=== PATIENT | female | born 1985 | race Caucasian/White ===

== ENCOUNTER → 2016-03-25 | Outpatient (CLI) | payer MEDICAID ==
[~2016-03-25] MED LIST: ONETAB PO; PREN27TA3 PO; SYMB80INH INH
[2016-03-25 12:30] LABS: BASO # 0.1 K/mm3 (0.0-0.2); BASO % 1.1 % (0.0-1.0); EOS # 0.2 K/mm3 (0.0-0.50); EOS % 1.7 % (0.0-3.0); LARGE UNSTAINED CELL # 0.1 K/mm3 (0.0-0.4); LARGE UNSTAINED CELL % 1.3 % (0.0-4.0); LYMPH # 2.7 K/mm3 (1.5-6.5); LYMPH % 25.9 % (24.0-44.0); MEAN CORPUSCULAR HEMOGLOBIN 29.9 pg (27.0-33.0); MEAN CORPUSCULAR HGB CONC 33.2 g/dl (32.0-36.5); MONO # 0.4 K/mm3 (0.0-0.8); MONO % 3.9 % (0.0-5.0); NEUTROPHILS # 6.5 K/mm3 (1.8-7.7); NEUTROPHILS % 66.1 % (36.0-66.0); PLATELET COUNT, AUTOMATED 268 k/mm3 (150-450); RED CELL DISTRIBUTION WIDTH 13.1 % (11.5-14.5); WHITE BLOOD COUNT 9.8 K/mm3 (4.0-10.0)
[2016-03-25 12:46] LABS: ALBUMIN 4.5 GM/DL (3.2-5.2); ALBUMIN/GLOBULIN RATIO 1.61 (1.00-1.93); ALKALINE PHOSPHATASE 61 U/L (45-117); ALT/SGPT 19 U/L (12-78); ANION GAP 7 MEQ/L (8-16); AST/SGOT 7 U/L (15-37); BILIRUBIN,TOTAL 0.5 MG/DL (0.2-1.0); BLOOD UREA NITROGEN 11 MG/DL (7-18); CALCIUM LEVEL 9.5 MG/DL (8.5-10.1); CARBON DIOXIDE LEVEL 27 MEQ/L (21-32); CHLORIDE LEVEL 110 MEQ/L (98-107); CREATININE FOR GFR 0.78 MG/DL (0.55-1.02); GLOMERULAR FILTRATION RATE > 60.0 (>60); GLUCOSE, FASTING 93 MG/DL (70-105); SODIUM LEVEL 144 MEQ/L (136-145); TOTAL PROTEIN 7.3 GM/DL (6.4-8.2)
[2016-03-25 12:57] LABS: ERYTHROCYTE SEDIMENTATION RATE 5 mm/hr (0-20)
== END ==
LOC: M LAB 11:30
PROVIDERS: ATTEND Emergency Medicine
DX: K58.2 Mixed irritable bowel syndrome (principal); N39.0 Urinary tract infection, site not specified

== ENCOUNTER → 2016-05-06 | Outpatient (REF) | payer OTHER | LOC: M LAB REF 18:19 | PROVIDERS: ATTEND Physician Assistant Medical | DX: R30.0 Dysuria (principal) ==

== ENCOUNTER → 2016-06-30 | Outpatient (CLI) | payer OTHER ==
--- NOTE | 2016-06-30 16:29 | REP ---
RIGHT ANKLE, FOUR VIEWS: There is no evidence of an acute fracture, dislocation or intrinsic bone disease. The ankle mortise is anatomic. IMPRESSION: No fracture or dislocation. Signed by Brian Ortega MD 07/01/2016 03:19 P
== END ==
LOC: M ADAMS 14:42
PROVIDERS: ATTEND Physician Assistant
DX: M25.571 Pain in right ankle and joints of right foot (principal)

== ENCOUNTER → 2016-07-21 | Outpatient (REF) | payer OTHER | LOC: M LAB REF 10:20 | PROVIDERS: ATTEND Physician Assistant | DX: R10.30 Lower abdominal pain, unspecified (principal) ==

== ENCOUNTER 2016-10-09 17:26 | Inpatient (IN) | payer OTHER ==
[~2016-10-09] VITALS: Ht 162.6 cm; Wt 77.0 kg
[2016-10-09] MEDS ORDERED: MULT1TAB10 PO (17:43)
[2016-10-09] MEDS ORDERED: MICR1TAB11 PO (17:43)
[2016-10-09] MEDS ORDERED: AUGM875T28 PO (17:43)
[2016-10-09] MEDS ORDERED: SYMB16INH INH (17:43)
[2016-10-09] MEDS ORDERED: PANTOPRAZOLE 40MG INJ (PROTONIX) (C9113) IV ONE (19:30)
[2016-10-09] MEDS ORDERED: NS 1,000 ML IV ONE (19:30)
[2016-10-09] MEDS ORDERED: ONDANSETRON 4MG/2ML VIAL (J2405) IV ONE (19:30)
[2016-10-09] MEDS ORDERED: MORPHINE 4 MG/ML 1ML SYRINGE IV PRN (19:30)
[2016-10-09 19:49] LABS: ADD MANUAL DIFFER YES; MEAN CORPUSCULAR HEMOGLOBIN 31.1 pg (27.0-33.0); MEAN CORPUSCULAR HGB CONC 33.7 g/dl (32.0-36.5); MEAN CORPUSCULAR VOLUME 92.1 fl (80.0-96.0); PLATELET COUNT, AUTOMATED 299 k/mm3 (150-450); RED CELL DISTRIBUTION WIDTH 12.6 % (11.5-14.5); WHITE BLOOD COUNT 23.8 K/mm3 (4.0-10.0)
[2016-10-09 20:02] LABS: ALBUMIN 4.9 GM/DL (3.2-5.2); ALBUMIN/GLOBULIN RATIO 1.36 (1.00-1.93); ALKALINE PHOSPHATASE 59 U/L (45-117); ALT/SGPT 22 U/L (12-78); ANION GAP 9 MEQ/L (8-16); AST/SGOT 17 U/L (15-37); BILIRUBIN,DIRECT < 0.1 MG/DL (0.0-0.2); BILIRUBIN,TOTAL 0.5 MG/DL (0.2-1.0); BLOOD UREA NITROGEN 16 MG/DL (7-18); CALCIUM LEVEL 9.8 MG/DL (8.5-10.1); CARBON DIOXIDE LEVEL 21 MEQ/L (21-32); CHLORIDE LEVEL 106 MEQ/L (98-107); CREATININE FOR GFR 0.87 MG/DL (0.55-1.02); GLOMERULAR FILTRATION RATE > 60.0 (>60); GLUCOSE, FASTING 100 MG/DL (70-105); SODIUM LEVEL 136 MEQ/L (136-145); TOTAL PROTEIN 8.5 GM/DL (6.4-8.2)
[2016-10-09 20:18] LABS: BANDS 2 % (< 11)
[2016-10-09] MEDS ORDERED: ISOVUE-370 76% 100ML VIAL (Q9967) As Ordered ONE (21:33)
--- NOTE | 2016-10-09 22:10 | REPUSA ---
CT angiogram of the chest Clinical statement: Chest pain and shortness of breath. Technique: Multiple axial CT images were obtained from the thoracic inlet through the upper abdomen a fter a bolus administration of nonionic intravenous contrast. Coronal and sagittal reconstructions we re also obtained. No comparison is available. Findings: The pulmonary arteries are well-opacified with contrast, with no intraluminal filling defec ts to suggest embolism. The thoracic aorta is unremarkable. Thyroid gland is within normal limits. Th ere is no thoracic lymphadenopathy. There are no pericardial or pleural effusions. The lungs are marko r. Limited imaging of the upper abdomen is unremarkable. There are no suspicious osseous lesions. Impression: Unremarkable CT examination of the chest. No evidence of pulmonary embolism.
--- NOTE | 2016-10-09 22:20 | REPUSA ---
CT of the abdomen and pelvis with contrast Clinical statement: Pain. Technique: Multiple axial CT images were obtained from the base of the lungs through the floor of the pelvis utilizing 5 mm axial slices after administration of nonionic intravenous contrast. Coronal an d sagittal reconstructions were also obtained. No comparison is available. Findings: Chest: The visualized lung bases are clear. Abdomen: The liver, spleen, pancreas, kidneys, gallbladder, and adrenal glands are unremarkable. The aorta is within normal limits. There is no evidence of abdominal lymphadenopathy or ascites. Pelvis: The bowel is unremarkable, with no obstructive or inflammatory changes. The urinary bladder i s within normal limits. The other pelvic structures appear grossly intact. There is no evidence of pe lvic lymphadenopathy or ascites. Bones: There are no suspicious osseous abnormalities seen. Impression: Unremarkable CT examination of the abdomen and pelvis.
[2016-10-09 22:45] LABS: INR 0.99
[2016-10-09] MEDS ORDERED: LR 1,000 ML IV ONE (22:45)
[2016-10-09 23:26] LABS: CONTROL LINE HCG INT CTR LINE PRESENT
[2016-10-09] MEDS ORDERED: VITMTA PO (23:27)
[2016-10-09 23:36] LABS: BASO % 0.2 % (0.0-1.0); EOS # 0.2 K/mm3 (0.0-0.50); EOS % 1.4 % (0.0-3.0); LARGE UNSTAINED CELL # 0.1 K/mm3 (0.0-0.4); LARGE UNSTAINED CELL % 0.4 % (0.0-4.0); LYMPH # 0.6 K/mm3 (1.5-4.5); LYMPH % 3.7 % (24.0-44.0); MEAN CORPUSCULAR HEMOGLOBIN 30.7 pg (27.0-33.0); MEAN CORPUSCULAR HGB CONC 33.3 g/dl (32.0-36.5); MEAN CORPUSCULAR VOLUME 92.3 fl (80.0-96.0); MONO # 0.3 K/mm3 (0.0-0.8); MONO % 1.6 % (0.0-5.0); NEUTROPHILS # 14.7 K/mm3 (1.8-7.7); NEUTROPHILS % 92.6 % (36.0-66.0); PLATELET COUNT, AUTOMATED 232 k/mm3 (150-450); RED CELL DISTRIBUTION WIDTH 12.6 % (11.5-14.5); WHITE BLOOD COUNT 15.8 K/mm3 (4.0-10.0)
[2016-10-10] VITALS (11 sets, daily range): BP systolic 97–120; BP diastolic 49–79
[2016-10-10] MEDS ORDERED: MAALOX 30 ML SUSP *UDC PO PRN
[2016-10-10] MEDS ORDERED: ACETAMINOPHEN TAB 650MG DOSE (2X325MG) PO PRN
[2016-10-10] MEDS ORDERED: ONDANSETRON 4MG/2ML VIAL (J2405) IV PRN
--- NOTE | 2016-10-10 00:55 | HPE ---
DATE OF ADMISSION: 10/09/2016 PRIMARY CARE PROVIDER: Syl Corea. CHIEF COMPLAINT: Nausea, vomiting. HISTORY OF PRESENT ILLNESS: This is a 31-year-old female patient with underlying medical history of ectopic , asthma, presented to the hospital on 10/09/2016, since 3 p.m. with acute onset nausea, vomiting that was persistent, more than 10 times, initially was food, eventually was dry heaving and to the extent that she was having blood in her vomitus and also reported three episodes of watery red bowel movement. Subsequently, presented to the hospital. Denies any sick contact, recent travel. By the time the patient was taken to the emergency room, patient's symptoms have resolved. Abdominal pain around the epigastric region at its worst was about 10/10, sharp, non-radiating, with no exacerbating or relieving factor. Has resolved by the patient was seen in the emergency room. Patient denies any chest pain, pressure or discomfort. Currently denies any nausea, vomiting. Denies any urinary complaint, dysuria, hematuria. No previous episodes. No history of gastrointestinal (GI) bleed. Orthostatics done at the emergency room were negative. ALLERGIES: No known drug allergies. PAST MEDICAL HISTORY: 1. Asthma. 2. Ectopic . PAST SURGICAL HISTORY: Ectopic and (C) section treated with salpingostomy 2014. SOCIAL HISTORY: Smokes about 3-4 cigarettes per day for the past 10 years. Denies drinking alcoholic beverages or illicit drug use. Denies any liver problems. FAMILY HISTORY: Patient's maternal aunts with breast cancer. REVIEW OF SYSTEMS: Reported nausea, vomiting, epigastric abdominal pain and diarrhea with blood in the stool and also hematemesis. All other review of systems is negative. Denies any fevers or chills. HOME MEDICATIONS: - Augmentin 875 mg by mouth twice a day - Symbicort 160/4.5 twice a day - Microgestin 24 one tablet by mouth daily - multivitamin one tablet by mouth daily PHYSICAL EXAMINATION: VITAL SIGNS: Temperature 96.1, pulse 76, respirations 18, blood pressure 115/65, pulse oximetry 100% on room air. GENERAL: Patient alert and oriented times three in no acute distress. HEENT: Normocephalic, atraumatic. PULMONARY: Bilaterally clear to auscultation. CARDIAC: Regular rate and rhythm. Normal S1, S2. ABDOMEN: Soft, nontender. Hyperactive bowel sounds. EXTREMITIES: No clubbing, cyanosis or edema. NEUROLOGICAL: No focal deficits. LABORATORY: WBC 23.8, hemoglobin and hematocrit 16.4/48.7, platelets 299. Chemistry: Sodium 136, potassium 4, chloride 106, bicarbonate 21, BUN 16, creatinine 0.87. Lactic acid 1.6. C-reactive protein negative. Lipase negative. CT of the chest unremarkable. CT of the abdomen unremarkable as well. ASSESSMENT AND PLAN: This is a 31-year-old female patient with underlying medical history of asthma and ectopic admitted with abdominal pain, nausea, vomiting, hematemesis, and diarrhea. 1. Hematemesis, nausea, vomiting, abdominal pain. Likely secondary to gastroenteritis with possible Monica-Rodriguez tear. I have consulted gastroenterology, Dr. Johnson. Orthostatics have been negative. Followup blood pressures. Intravenous (IV) fluids for hydration. Consented for transfusion. Followup hemoglobin and hematocrit. Transfuse as needed. Protonix twice a day, as well as Carafate. Maalox as needed. Pain medication as ordered. Followup fecal occult. 2. History of ectopic . HCG has been negative. CT scan of the abdomen appreciated. 3. Leukocytosis. Likely reactive to the acute phase of nausea, vomiting. Possible viral gastroenteritis. C-reactive protein has been negative. CT scan has been negative. Will withhold antibiotics. Followup cultures. IV fluids for hydration. 4. Deep venous thrombosis (DVT) prophylaxis. Sequential compression device and early ambulation. DISPOSITION: Pending gastroenterology consultation and clinical improvement. Monitor hemoglobin and hematocrit.
[2016-10-10] MEDS: LR 1,000 ML IV SCH ×4 (02:26→19:08)
[2016-10-10] MEDS: SUCRALFATE 1 GM TAB PO SCH ×6 (05:14→21:43)
[2016-10-10 07:03] LABS: MEAN CORPUSCULAR HEMOGLOBIN 31.7 pg (27.0-33.0); MEAN CORPUSCULAR HGB CONC 34.5 g/dl (32.0-36.5); MEAN CORPUSCULAR VOLUME 91.8 fl (80.0-96.0); RED CELL DISTRIBUTION WIDTH 12.7 % (11.5-14.5); WHITE BLOOD COUNT 10.1 K/mm3 (4.0-10.0)
[2016-10-10 07:23] LABS: ANION GAP 7 MEQ/L (8-16); BLOOD UREA NITROGEN 12 MG/DL (7-18); CARBON DIOXIDE LEVEL 25 MEQ/L (21-32); CHLORIDE LEVEL 109 MEQ/L (98-107); CREATININE FOR GFR 0.65 MG/DL (0.55-1.02); GLOMERULAR FILTRATION RATE > 60.0 (>60); GLUCOSE, FASTING 90 MG/DL (70-105); SODIUM LEVEL 141 MEQ/L (136-145)
[2016-10-10] MEDS: SYMBICORT 160/4.5MCG INHALER 6GM INH SCH ×2 (07:39→20:13)
[2016-10-10] MEDS: PANTOPRAZOLE 40MG INJ (PROTONIX) (C9113) IV SCH ×2 (08:30→21:43)
--- NOTE | 2016-10-10 14:33 | CR ---
DATE OF CONSULTATION: 10/10/2016 STATUS OF PATIENT: Inpatient. REQUESTING PHYSICIAN: Hospitalist service. REASON FOR CONSULTATION: Hematemesis. HISTORY OF PRESENT ILLNESS: This is a 31-year-old female patient without any significant past medical history who presents to the emergency room with acute nausea and vomiting that has been persistent for the entire day. She has several episodes of dry heaving, but subsequently produced bright red blood in her vomitus. She at some point throughout the evening also developed some dark stools, as well as reddish stools. She had significant abdominal pain, which was described as sharp, located in the epigastric area, without any relief. The patient presents to the emergency room with above. ALLERGIES: No known drug allergies. PAST MEDICAL HISTORY: Is asthma and ectopic . PAST SURGICAL HISTORY: Is ectopic . SOCIAL HISTORY: Is positive for 3-5 cigarettes per day. Negative for alcohol. FAMILY HISTORY: Is negative for colorectal carcinoma, inflammatory bowel disease, or chronic liver disease. It is positive for breast cancer. REVIEW OF SYSTEMS: General: Negative for night sweats, fevers, or chills, or weight loss. Pulmonary: Negative for hemoptysis, pleuritic-type chest pain. Cardiac: Negative for orthopnea, paroxysmal nocturnal dyspnea (PND). Gastrointestinal (GI): Is as per history of present illness (HPI). Genitourinary (): Negative for hematuria or dysuria. Musculoskeletal: Negative for myalgias or arthralgias. Neurological: Negative for focal numbness or weakness. MEDICATIONS AT HOME: Are: - Augmentin - Symbicort - microgestin - a multivitamin PHYSICAL EXAMINATION: Temperature 97.4, pulse is 76 regular, respirations 16, blood pressure 115/65, pulse oximetry 100% on room air. General: She is awake and alert, oriented times three, in no acute distress. She is nontoxic in appearance. She appears comfortable in bed. Head, eyes, ears, nose, and throat: Are grossly without abnormality. There is no oral thrush. Neck is supple. No lymphadenopathy or thyromegaly. Chest is clear bilaterally. No rhonchi or crackles. Heart is regular rate and rhythm, S1, S2. No murmurs are appreciated. Abdomen is soft, mildly tender in the epigastric area on deep palpation only. There is no rebound ascites. No masses. Extremities: Negative for edema. Pulses are present and intact. Neurological: Negative for focal numbness or weakness. She is awake, alert, and oriented times three. She ambulates in the room without any difficulty. LABORATORY WORK: WBC 10.1, hemoglobin 11.8, hematocrit 34.3, BUN 12, creatinine is 0.65. Presentation laboratory work includes a hemoglobin of 16.4 with a WBC count of 23.8, platelet count of 299, BUN 16, and creatinine 0.8. IMAGING: CT abdomen and pelvis is unremarkable. IMPRESSION: 1. Hematemesis. 2. Melena. DISCUSSION: Probable mechanism for her symptoms is likely a Monica-Rodriguez tear that produced some significant bleeding and even produced some melena. Alternatives such as two separate lesions may also be entertained. However, are much less likely. The plan: Upper endoscopy. Clear liquids. Further recommendations to follow.
[2016-10-10] MEDS ORDERED: LIDOCAINE 2% INJ 100 MG/5 ML SDV (FOR ANES.) As Ordered ONE (14:47)
[2016-10-10] MEDS ORDERED: PROPOFOL 200 MG/20 ML VIAL As Ordered ONE (14:47)
--- NOTE | 2016-10-10 14:57 | ROOR ---
Patient Name: Sherley Dunn Procedure Date: 10/10/2016 2:15 PM Date of : 1985 Age: 31 Gender: Female Note Status: Finalized Procedure: Upper GI endoscopy Indications: Hematemesis, Hematochezia, Melena Providers: Brian JOHNSON MD Referring MD: Syl Corea MD Requesting Provider: Medicines: Monitored Anesthesia Care Complications: No immediate complications. Procedure: Pre-Anesthesia Assessment: - The heart rate, respiratory rate, oxygen saturations, blood pressure, adequacy of pulmonary ventilation, and response to care were monitored throughout the procedure. The Endoscope was introduced through the mouth, and advanced to the second part of duodenum. The upper GI endoscopy was accomplished without difficulty. The patient tolerated the procedure well. Findings: The esophagus was normal. The stomach was normal. The examined duodenum was normal. Impression: - Normal esophagus. - Normal stomach. - Normal examined duodenum. - No specimens collected. Recommendation: - I suspect she may have leaked from a Monica Alonzo tear, however on todays exam, I do not see any hint of irritation or tear. It is still probable that a small monica alonzo may have sealed itself, but in view of rectal bleeding old blood and fresh blood, I think it would be prudent to eval lower GI tract via colonoscopy. - Perform a colonoscopy tomorrow. Brian Johnson MD Brian JOHNSON MD 10/10/2016 2:57:29 PM This report has been signed electronically. Number of Addenda: 0 Note Initiated On: 10/10/2016 2:15 PM Estimated Blood Loss: Estimated blood loss: none.
[2016-10-10] MEDS: MULTIVITAMINS/MINERALS THERAP 1 TAB PO SCH (16:05)
[2016-10-10] MEDS ORDERED: GOLYTELY SOLN 4000 ML BTL PO ONE (17:00)
--- NOTE | 2016-10-10 21:16 | IPN ---
DATE: 10/10/2016 SUBJECTIVE: Patient is seen and examined in the afternoon after her upper endoscopy. Per patient, patient started vomiting blood, had a significant amount of blood after vigorous vomiting. Later, patient noticed to have multiple bloody bowel movements. Per patient, the estimated blood loss is about several cups. Never had a similar episode in the past. When patient returned from the EGD, patient still noted to have significant bloody stools. Patient tolerated upper endoscopy well without any significant adverse effect. OBJECTIVE: VITAL SIGNS: Temperature is 98.2, pulse is 92, respirations 18, blood pressure is 128/59, pulse oximetry is 97% in room air. GENERAL: No sign of acute distress, alert and oriented times three. HEENT: Normocephalic, atraumatic. Extraocular motors grossly intact. CARDIOVASCULAR: Positive S1, S2, regular rate. LUNGS: Clear to auscultation bilaterally. ABDOMEN: Soft, nontender, nondistended. Bowel sounds present. EXTREMITIES: No edema. No sign of cyanosis. LABORATORY DATA: WBC is 10.1, hemoglobin 11.8, hematocrit 34.3, platelet count is 223. Sodium is 141, potassium 4, chloride 109, carbon dioxide 25, BUN 12, creatinine 0.65, GFR greater than 60, fasting glucose is 90, calcium 8, magnesium 2. ASSESSMENT AND PLAN: 1. Acute gastrointestinal (GI) bleed. Patient has history of hemoptysis and bright red blood per rectum. Aed Trainer, Dr. Johnosn, has been consulted. Patient just had an upper endoscopy performed today. Patient will receive GoLYTELY and patient will have a colonoscopy tomorrow. Patient is continued on IV fluid hydration. Initially, patient had a drop in hemoglobin and hematocrit but may be a combination of fluid hemodilution and acute blood loss. For the last 12-24 hours, patient's hemoglobin and hematocrit is stable. Patient's hemoglobin and hematocrit has been measured every 6 hours. 2. Leukocytosis. It may be due to a combination of dehydration and physical stress from dehydration. In order to rule out infectious cause, we will followup with gastrointestinal (GI) panel. Blood culture is pending. Urine culture is pending. 3. History of asthma. No exacerbation. 4. History of ectopic . 5. Deep venous thrombosis (DVT) prophylaxis. Due to acute gastrointestinal (GI) bleeding, patient is not on anticoagulation. Patient is on compression device.
[2016-10-11] VITALS (8 sets, daily range): BP systolic 120–137; BP diastolic 63–89
[2016-10-11] MEDS: LR 1,000 ML IV SCH ×2 (02:40→08:10)
[2016-10-11 05:33] LABS: MEAN CORPUSCULAR HEMOGLOBIN 31.6 pg (27.0-33.0); MEAN CORPUSCULAR HGB CONC 34.4 g/dl (32.0-36.5); RED CELL DISTRIBUTION WIDTH 12.7 % (11.5-14.5); WHITE BLOOD COUNT 5.8 K/mm3 (4.0-10.0)
[2016-10-11] MEDS ORDERED: GOLYTELY SOLN 4000 ML BTL PO ONE (06:00)
[2016-10-11 06:44] LABS: ANION GAP 5 MEQ/L (8-16); BLOOD UREA NITROGEN 6 MG/DL (7-18); CALCIUM LEVEL 8.1 MG/DL (8.5-10.1); CARBON DIOXIDE LEVEL 25 MEQ/L (21-32); CHLORIDE LEVEL 109 MEQ/L (98-107); CREATININE FOR GFR 0.58 MG/DL (0.55-1.02); GLOMERULAR FILTRATION RATE > 60.0 (>60); GLUCOSE, FASTING 92 MG/DL (70-105); POTASSIUM SERUM 3.4 MEQ/L (3.5-5.1); SODIUM LEVEL 139 MEQ/L (136-145)
[2016-10-11] MEDS: SUCRALFATE 1 GM TAB PO SCH ×2 (06:57→13:49)
[2016-10-11] MEDS ORDERED: POTASSIUM CHLORIDE 10 MEQ SR TABLET PO ONE (07:30)
[2016-10-11] MEDS: SYMBICORT 160/4.5MCG INHALER 6GM INH SCH (08:10)
[2016-10-11] MEDS: PANTOPRAZOLE 40MG INJ (PROTONIX) (C9113) IV SCH (08:10)
[2016-10-11] MEDS: MULTIVITAMINS/MINERALS THERAP 1 TAB PO SCH (08:10)
[2016-10-11] MEDS ORDERED: SUCR1TA PO (13:25)
[2016-10-11] MEDS ORDERED: PROT1TAB2 PO (13:25)
--- NOTE | 2016-10-11 15:13 | IPN ---
DATE: 10/11/2016 The patient is seen and examined at the bedside. Chart has been reviewed. She reports some bloody bowel movements last evening but denies any dizziness, lightheadedness, or weakness. No shortness of breath, chest pain, pressure or tightness. This was described as maroon colored stools, small amount mixed with stool. EGD yesterday showed a possible Monica-Rodriguez tear but no visible oozing. No other issues per nursing. She currently has no abdominal pain. Described some cramping yesterday but currently has no nausea or vomiting. She has been preparing for the colonoscopy yesterday evening and into this morning and has been having loose bowel movements with blood tinged stool. Otherwise, no other issues per nursing. PHYSICAL EXAMINATION: VITAL SIGNS: Temperature 98.5, pulse 88, respiratory rate 18, blood pressure 120/63, 99% on room air. GENERAL: The patient is awake, alert, oriented times three. No pallor. No icterus. No jaundice. Pupils are round and reactive to light and accommodation. Extraocular muscles are intact. No cervical lymphadenopathy. No jugular venous distention (JVD). LUNGS: Clear to auscultation with no wheezing, rales or rhonchi. HEART: S1, S2. Sinus rhythm. ABDOMEN: Soft, nontender, nondistended. Positive bowel sounds. EXTREMITIES: No pitting edema. LABORATORY DATA: White count 5.8, hemoglobin 10, hematocrit 31, platelet count of 197. Sodium 139, potassium 3.4, chloride 109, bicarbonate 25, BUN 6, creatinine 0.58, glucose of 92. EGD on 10/10/2016 showed possible leak from a Monica-Rodriguez tear; however, no hint of irritation or tear, probably small, which may have healed itself. Evaluate lower GI tract by colonoscopy. ASSESSMENT AND PLAN: This is a 31-year-old female with a history of asthma, ectopic , active cigarette use, denies alcoholic beverages, presents with nausea, vomiting, hematemesis and maroon colored stools. CURRENT ISSUES: 1. Acute GI bleed, history of hemoptysis, bright red blood per rectum. EGD was essentially negative with the possibility of a sealed off Monica-Rodriguez tear. Hemoglobin and hematocrit still remain stable and the patient is still asymptomatic. Denies any dizziness, lightheadedness, weakness, chest pain, pressure, tightness or shortness of breath. Continue with hemoglobin and hematocrit and nothing by mouth status. The patient will undergo colonoscopy today. Currently undergoing GoLYTELY on IV fluids. Hemoglobin and hematocrit may have some fluid hemodilution and still with acute blood loss. 2. Leukocytosis. Combination of dehydration and stress from dehydration. Rule out infectious process. GI panel was sent. Hemoccult was positive. GI panel was ordered, but no sample has been sent. 3. Deep vein thrombosis (DVT) prophylaxis with knee high sequentials. DISPOSITION: May discharge in the morning if hemoglobin and hematocrit are stable and no active GI bleeding and negative colonoscopy and tolerating a diet.
[2016-10-11] MEDS ORDERED: LIDOCAINE 2% INJ 100 MG/5 ML SDV (FOR ANES.) As Ordered ONE (16:01)
[2016-10-11] MEDS ORDERED: PROPOFOL 200 MG/20 ML VIAL As Ordered ONE (16:01)
--- NOTE | 2016-10-11 16:18 | ROOR ---
Patient Name: Sherley Dunn Procedure Date: 10/11/2016 3:54 PM Date of : 1985 Age: 31 Room: [facility] Gender: Female Note Status: Finalized Procedure: Colonoscopy Indications: Hematochezia Providers: Brian FIGUEROA MD Referring MD: Syl Corea MD Requesting Provider: Medicines: Monitored Anesthesia Care Complications: No immediate complications. Procedure: Pre-Anesthesia Assessment: - The heart rate, respiratory rate, oxygen saturations, blood pressure, adequacy of pulmonary ventilation, and response to care were monitored throughout the procedure. The Colonoscope was introduced through the anus and advanced to 5 cm into the ileum. The colonoscopy was performed without difficulty. The patient tolerated the procedure well. The quality of the bowel preparation was good. Findings: The perianal exam findings include thrombosed external hemorrhoids. Internal hemorrhoids were found during retroflexion. The hemorrhoids were medium-sized. The terminal ileum appeared normal. The entire examined colon appeared normal on direct and retroflexion views. Impression: - Small external hemorrhoids found on perianal exam. - Small Internal hemorrhoids. - The examined portion of the ileum was normal. - The colon and terminal ileum are normal on direct and retroflexion views. - No specimens collected. Recommendation: - The patient will be observed post-procedure, until all discharge criteria are met. - Resume regular diet. - Return to primary care physician. - Formal follow up appointment with me not necessary. Can follow up PRN - Use fiber, for example Citrucel, Fibercon, Konsyl or Metamucil. Brian Figueroa MD Brian FIGUEROA MD 10/11/2016 4:18:18 PM This report has been signed electronically. Number of Addenda: 0 Note Initiated On: 10/11/2016 3:54 PM Estimated Blood Loss: Estimated blood loss: none.
--- NOTE | 2016-10-25 22:33 | DSES ---
DATE OF ADMISSION: 10/09/2016 DATE OF DISCHARGE: 10/11/2016 CONSULTANTS DURING THIS ADMISSION: Brian Johnson MD. PRIMARY CARE PHYSICIAN: Syl Corea PRIMARY DISCHARGE DIAGNOSES: 1. Thrombosed external hemorrhoids. 2. Internal hemorrhoids 3. Acute blood loss anemia secondary to gastrointestinal (GI) bleed with bright red blood per rectum. 4. History of asthma. 5. History of ectopic . 6. Possible leak from Monica-Rodriguez tear. 7. Hypokalemia, low potassium of 3.4. DISCHARGE MEDICATIONS: - Symbicort 160-4.5 mcg two puffs twice a day - Microgestin one tab daily - multivitamins one tablet daily PROCEDURES DURING THIS ADMISSION: Colonoscopy due to hematochezia. Findings of thrombosed external hemorrhoids, internal hemorrhoids, medium sized. Esophagogastroduodenoscopy (EGD) on 10/10 showed possible leak from Monica- Rodriguez tear. No hint of irritation or tear, probably small leak which may have healed itself. HOSPITAL COURSE: This is a 31-year-old female with history of asthma, ectopic , active cigarette use, denies alcohol beverages, presents with nausea, vomiting, hematemesis and maroon colored stools with hematochezia. Esophagogastroduodenoscopy (EGD) performed by Brian Johnson showed a sealed off Monica-Rodriguez tear. Hemoglobin and hematocrit remains stable. Denies any dizziness, lightheadedness, weakness, chest pain, pressure, tightness or shortness of breath. She was kept nothing by mouth with IV fluids and underwent esophagogastroduodenoscopy (EGD) and colonoscopy. Hemoglobin remains stable, 11.8 to 11.5. She did not require any blood transfusion, but she was B type positive. CT abdomen and pelvis: No evidence of abdominal or pelvic pathology. Lungs were clear. Chest CT, due to complaints of hematemesis and epigastric pain, showed unremarkable CT of the chest. No evidence pulmonary embolism. The patient underwent esophagogastroduodenoscopy (EGD) and colonoscopy on 10/10. Esophagogastroduodenoscopy (EGD) showed possible leak from Monica-Rodriguez tear, but no hint of irritation or tear, probably small Monica-Rodriguez tear which may have healed itself. Normal esophagus, stomach and duodenum. Colonoscopy showed thrombosed external hemorrhoids and internal hemorrhoids. The patient was advanced in diet with normal hemoglobin and hematocrit was discharged home in stable in condition. LABORATORY ON DISCHARGE: White count 5.8, hemoglobin 10.8, hematocrit 31, platelet count 197. Sodium 139, potassium 3.4, chloride 109, bicarbonate 25, BUN 6, creatine 0.58, glucose is 92. Two sets of blood cultures on 10/09/ and 10/10 were negative. Urine culture 10/10 negative. 10/10, hemoccult stool ws positive. Imaging studies 10/09: No pulmonary emboli (PE). No acute lung pathology. 10/09 CT abdomen and pelvis was also negative. Unremarkable CT abdomen and pelvis. Time spent on discharge 30 minutes. [facility]
== END 2016-10-11 19:15 | disposition home or self-care (01) | DRG 253 ==
LOC: M ED 17:26 → M ED INP 23:53 → M PED 10-10 01:43
PROVIDERS: ADMIT Hospitalist; ATTEND General Practice
PROC: 0DJ08ZZ Inspection of Upper Intestinal Tract, Via Natural or Artificial Opening Endoscopic (ICD-10-PCS; principal; 2016-10-10 09:15)
PROC: 0DJD8ZZ Inspection of Lower Intestinal Tract, Via Natural or Artificial Opening Endoscopic (ICD-10-PCS; 2016-10-11)
DX: K92.2 Gastrointestinal hemorrhage, unspecified (principal); E86.0 Dehydration; K64.5 Perianal venous thrombosis; J45.909 Unspecified asthma, uncomplicated; D72.829 Elevated white blood cell count, unspecified; F17.210 Nicotine dependence, cigarettes, uncomplicated; K64.8 Other hemorrhoids; D62 Acute posthemorrhagic anemia; K22.6 Gastro-esophageal laceration-hemorrhage syndrome; Z79.899 Other long term (current) drug therapy

== ENCOUNTER 2016-10-14 22:31 | Emergency (ER) | payer OTHER ==
[~2016-10-14] VITALS: Ht 162.6 cm; Wt 72.7 kg
[~2016-10-14 22:31] MED LIST changes: +AUGM875T28 PO; +MICR1TAB11 PO; +MULT1TAB10 PO; +PROT1TAB2 PO; +SUCR1TA PO; +SYMB16INH INH; +VITMTA PO
[2016-10-14 22:32] VITALS: BP 136/73
== END 2016-10-14 23:51 | disposition left against medical advice (07) ==
LOC: M ED 22:31
DX: R53.1 Weakness (principal); Z53.29 Procedure and treatment not carried out because of patient's decision for other reasons

== ENCOUNTER → 2016-10-20 | Outpatient (CLI) | payer OTHER ==
[2016-10-20 12:42] LABS: BASO % 0.5 % (0.0-1.0); EOS # 0.2 K/mm3 (0.0-0.50); EOS % 2.1 % (0.0-3.0); LARGE UNSTAINED CELL # 0.1 K/mm3 (0.0-0.4); LARGE UNSTAINED CELL % 1.1 % (0.0-4.0); LYMPH # 2.5 K/mm3 (1.5-4.5); LYMPH % 29.5 % (24.0-44.0); MEAN CORPUSCULAR VOLUME 91.2 fl (80.0-96.0); MONO # 0.3 K/mm3 (0.0-0.8); MONO % 3.2 % (0.0-5.0); NEUTROPHILS # 5.2 K/mm3 (1.8-7.7); NEUTROPHILS % 63.7 % (36.0-66.0); PLATELET COUNT, AUTOMATED 284 k/mm3 (150-450); RED CELL DISTRIBUTION WIDTH 12.7 % (11.5-14.5); WHITE BLOOD COUNT 8.1 K/mm3 (4.0-10.0)
[2016-10-20 12:53] LABS: ANION GAP 10 MEQ/L (8-16); BLOOD UREA NITROGEN 11 MG/DL (7-18); CARBON DIOXIDE LEVEL 24 MEQ/L (21-32); CHLORIDE LEVEL 108 MEQ/L (98-107); CREATININE FOR GFR 0.69 MG/DL (0.55-1.02); GLOMERULAR FILTRATION RATE > 60.0 (>60); GLUCOSE, FASTING 96 MG/DL (70-105); MAGNESIUM LEVEL 2.4 MG/DL (1.8-2.4); POTASSIUM SERUM 4.1 MEQ/L (3.5-5.1); SODIUM LEVEL 142 MEQ/L (136-145)
== END ==
LOC: M LAB 11:58
PROVIDERS: ATTEND Physician Assistant Medical
DX: R53.1 Weakness (principal); K62.5 Hemorrhage of anus and rectum; A08.4 Viral intestinal infection, unspecified

== ENCOUNTER → 2016-11-08 | Outpatient (REF) | payer OTHER ==
[2016-11-08 20:21] LABS: EOS % 1.6 % (0.0-3.0); LYMPH % 22.3 % (24.0-44.0); MEAN CORPUSCULAR HGB CONC 33.2 g/dl (32.0-36.5); MEAN CORPUSCULAR VOLUME 93.2 fl (80.0-96.0); MONO % 3.8 % (0.0-5.0); NEUTROPHILS % 70.8 % (36.0-66.0); PLATELET COUNT, AUTOMATED 275 k/mm3 (150-450); RED CELL DISTRIBUTION WIDTH 12.5 % (11.5-14.5); WHITE BLOOD COUNT 10.6 K/mm3 (4.0-10.0)
[2016-11-08 20:22] LABS: BASO # 0.1 K/mm3 (0.0-0.2); BASO % 0.6 % (0.0-1.0); EOS # 0.2 K/mm3 (0.0-0.50); LARGE UNSTAINED CELL # 0.1 K/mm3 (0.0-0.4); LARGE UNSTAINED CELL % 0.9 % (0.0-4.0); LYMPH # 2.5 K/mm3 (1.5-4.5); MONO # 0.4 K/mm3 (0.0-0.8); NEUTROPHILS # 7.5 K/mm3 (1.8-7.7)
[2016-11-08 20:51] LABS: ALBUMIN 4.1 GM/DL (3.2-5.2); ALBUMIN/GLOBULIN RATIO 1.37 (1.00-1.93); ALKALINE PHOSPHATASE 52 U/L (45-117); ALT/SGPT 17 U/L (12-78); ANION GAP 12 MEQ/L (8-16); AST/SGOT 10 U/L (15-37); BILIRUBIN,TOTAL 0.4 MG/DL (0.2-1.0); BLOOD UREA NITROGEN 9 MG/DL (7-18); CALCIUM LEVEL 8.7 MG/DL (8.5-10.1); CARBON DIOXIDE LEVEL 22 MEQ/L (21-32); CHLORIDE LEVEL 109 MEQ/L (98-107); CREATININE FOR GFR 0.67 MG/DL (0.55-1.02); GLOMERULAR FILTRATION RATE > 60.0 (>60); GLUCOSE, FASTING 70 MG/DL (70-105); POTASSIUM SERUM 3.9 MEQ/L (3.5-5.1); SODIUM LEVEL 143 MEQ/L (136-145); TOTAL PROTEIN 7.1 GM/DL (6.4-8.2)
== END ==
LOC: M LABWUC 19:31
PROVIDERS: ATTEND Family Medicine
DX: M79.1 Myalgia (principal); K92.0 Hematemesis

== ENCOUNTER → 2016-11-28 | Outpatient (REF) | payer OTHER | LOC: M LAB REF 17:00 | PROVIDERS: ATTEND Specialist | DX: Z12.4 Encounter for screening for malignant neoplasm of cervix (principal) ==

== ENCOUNTER → 2016-12-29 | Outpatient (CLI) | payer OTHER ==
[2016-12-29 14:30] LABS: FOLATE > 24.0 NG/ML; VITAMIN B12 LEVEL 439 PG/ML
--- NOTE | 2016-12-29 17:55 | REP ---
Clinical: Cervicalgia. Technique: AP, lateral, flexion/extension, bilateral oblique, and open-mouth views of the cervical spine. Findings: Alignment is maintained. Moderate degenerative disc osteophyte complex at the C5-6 level includes anterior spurring, endplate sclerosis and disc space narrowing. No acute fracture / compression injury or subluxation. Oblique views demonstrate patent neural foramen. Open mouth view demonstrates normal C1-C2 articulation and odontoid process. Impression: Moderate focal degenerative disc osteophyte complex at C5-6. Signed by Stephan Do MD 12/29/2016 05:46 P
[2016-12-31 00:07] LABS: Lyme Disease IgG/IgM Antibodie <0.91 ISR (0.00-0.90); Lyme Disease IgM Ab Quantitati <0.80 index (0.00-0.79)
== END ==
LOC: M ADAMS 09:12
PROVIDERS: ATTEND Physician Assistant Medical
DX: M54.2 Cervicalgia (principal)

== ENCOUNTER → 2017-04-16 | Outpatient (REF) | payer OTHER | LOC: M LAB REF 04-17 12:19 | DX: N30.01 Acute cystitis with hematuria (principal) | CPT/HCPCS: 87086 ==

== ENCOUNTER → 2017-04-18 | Outpatient (REF) | payer OTHER ==
[2017-04-18 12:47] LABS: BASO # 0.1 10^3/uL (0.0-0.2); BASO % 0.9 % (0.0-1.0); EOS # 0.2 10^3/uL (0.0-0.50); EOS % 2.9 % (0.0-3.0); HEMATOCRIT 40.2 % (36.0-47.0); HEMOGLOBIN 13.1 g/dl (12.0-16.0); IMMATURE GRANULOCYTE % 0.2 % (0-0); LYMPH # 2.8 10^3/uL (1.5-4.5); LYMPH % 33.6 % (24.0-44.0); MEAN CORPUSCULAR HGB CONC 32.6 g/dl (32.0-36.5); MEAN CORPUSCULAR VOLUME 92.2 fl (80.0-96.0); MONO # 0.4 10^3/uL (0.0-0.8); MONO % 5.1 % (0.0-5.0); NEUTROPHILS # 4.7 10^3/uL (1.8-7.7); NEUTROPHILS % 57.3 % (36.0-66.0); PLATELET COUNT, AUTOMATED 295 10^3/uL (150-450); RED BLOOD COUNT 4.36 10^6/uL (4.00-5.40); RED CELL DISTRIBUTION WIDTH 12.5 % (11.5-14.5); WHITE BLOOD COUNT 8.2 10^3/uL (4.0-10.0)
== END ==
LOC: M LABDRWAD 12:28
DX: R59.9 Enlarged lymph nodes, unspecified (principal)

== ENCOUNTER → 2017-04-22 | Outpatient (REF) | payer OTHER ==
[2017-04-22 21:58] LABS: APPEARANCE, URINE CLEAR (CLEAR); BACTERIA, URINE AUTO NEGATIVE (NEGATIVE); BILIRUBIN, URINE AUTO NEGATIVE (NEGATIVE); BLOOD, URINE BLOOD NEGATIVE (NEGATIVE); COLOR, URINE COLORLESS (YELLOW); GLUCOSE, URINE (UA) AUTO NEGATIVE (NEGATIVE); KETONE, URINE AUTO NEGATIVE (NEGATIVE); LEUKOCYTE ESTERASE, URINE AUTO NEGATIVE (NEGATIVE); NITRITE, URINE AUTO NEGATIVE (NEGATIVE); PROTEIN, URINE AUTO NEGATIVE (NEGATIVE); RBC, URINE AUTO 0 /HPF (0-3); SPECIFIC GRAVITY URINE AUTO 1.002 (1.002-1.035); SQUAMOUS EPITHELIAL CELL UR AU 3 /HPF (0-6); UROBILINOGEN, URINE AUTO 0.2 mg/dL (0.0-2.0); WBC, URINE AUTO 0 /HPF (0-3)
[2017-04-22 22:06] LABS: INFLUENZA A AMPLIFICATION POSITIVE (NEGATIVE); INFLUENZA B AMPLIFICATION NEGATIVE (NEGATIVE); RSV AMPLIFICATION NEGATIVE (NEGATIVE)
== END ==
LOC: M LAB REF 14:38
DX: N39.0 Urinary tract infection, site not specified (principal); J09.X2 Influenza due to identified novel influenza A virus with other respiratory manifestations

== ENCOUNTER → 2017-04-26 | Outpatient (CLI) | payer OTHER | LOC: M ADAMS 13:54 | DX: J09.X2 Influenza due to identified novel influenza A virus with other respiratory manifestations (principal) | CPT/HCPCS: 71046 ==

== ENCOUNTER → 2017-12-08 | Outpatient (REF) | payer OTHER | LOC: M LAB REF 18:50 | DX: R30.0 Dysuria (principal) ==

== ENCOUNTER → 2017-12-12 | Outpatient (REF) | payer OTHER | LOC: M LAB REF 13:20 | DX: R35.0 Frequency of micturition (principal) ==

== ENCOUNTER → 2018-05-20 | Outpatient (CLI) | payer OTHER ==
[2018-05-20 17:32] LABS: BASO # 0.1 10^3/uL (0.0-0.2); BASO % 0.5 % (0.0-1.0); EOS # 0.2 10^3/uL (0.0-0.50); EOS % 2.1 % (0.0-3.0); HEMATOCRIT 40.7 % (36.0-47.0); HEMOGLOBIN 13.2 g/dl (12.0-15.5); LYMPH # 2.3 10^3/uL (1.5-4.5); LYMPH % 24.8 % (24.0-44.0); MEAN CORPUSCULAR HEMOGLOBIN 30.2 pg (27.0-33.0); MEAN CORPUSCULAR HGB CONC 32.4 g/dl (32.0-36.5); MEAN CORPUSCULAR VOLUME 93.1 fl (80.0-96.0); MONO # 0.4 10^3/uL (0.0-0.8); MONO % 4.5 % (0.0-5.0); NEUTROPHILS # 6.2 10^3/uL (1.8-7.7); NEUTROPHILS % 67.8 % (36.0-66.0); PLATELET COUNT, AUTOMATED 301 10^3/uL (150-450); RED BLOOD COUNT 4.37 10^6/uL (4.00-5.40); WHITE BLOOD COUNT 9.1 10^3/uL (4.0-10.0)
[2018-05-20 17:58] LABS: BLOOD UREA NITROGEN 13 MG/DL (7-18); C REACTIVE PROTEIN QUANTITATIV < 0.30 MG/DL (0.00-0.30); CALCIUM LEVEL 8.8 MG/DL (8.5-10.1); CARBON DIOXIDE LEVEL 26 MEQ/L (21-32); CHLORIDE LEVEL 109 MEQ/L (98-107); CREATININE FOR GFR 0.88 MG/DL (0.55-1.30); FREE T4 0.97 NG/DL (0.76-1.46); GLOMERULAR FILTRATION RATE > 60.0 (>60); GLUCOSE, FASTING 88 MG/DL (70-100); POTASSIUM SERUM 4.5 MEQ/L (3.5-5.1); SODIUM LEVEL 142 MEQ/L (136-145)
[2018-05-20 18:00] LABS: ERYTHROCYTE SEDIMENTATION RATE 4 mm/hr (0-20)
== END ==
LOC: M LABDRWAD 12:23
PROVIDERS: ATTEND Physician Assistant
DX: M79.652 Pain in left thigh (principal)

== ENCOUNTER 2018-07-20 20:36 | Emergency (ER) | payer OTHER ==
[~2018-07-20] VITALS: Ht 162.6 cm; Wt 84.5 kg
[2018-07-20] MEDS ORDERED: NS 1,000 ML IV ONE (21:45)
[2018-07-20 22:18] LABS: BASO % 0.5 % (0.0-1.0); EOS # 0.1 10^3/uL (0.0-0.50); EOS % 1.7 % (0.0-3.0); HEMATOCRIT 38.4 % (36.0-47.0); HEMOGLOBIN 12.7 g/dl (12.0-15.5); LYMPH # 3.4 10^3/uL (1.5-4.5); LYMPH % 44.9 % (24.0-44.0); MEAN CORPUSCULAR HEMOGLOBIN 29.9 pg (27.0-33.0); MEAN CORPUSCULAR HGB CONC 33.1 g/dl (32.0-36.5); MEAN CORPUSCULAR VOLUME 90.4 fl (80.0-96.0); MONO # 0.4 10^3/uL (0.0-0.8); MONO % 4.8 % (0.0-5.0); NEUTROPHILS # 3.6 10^3/uL (1.8-7.7); PLATELET COUNT, AUTOMATED 272 10^3/uL (150-450); RED BLOOD COUNT 4.25 10^6/uL (4.00-5.40); WHITE BLOOD COUNT 7.5 10^3/uL (4.0-10.0)
--- NOTE | 2018-07-20 22:32 | REPVR ---
EXAM: US Pelvis Complete, Transabdominal EXAM DATE/TIME: 07/20/2018 9:55 PM CLINICAL HISTORY: 33 years old, female; Pelvic pain TECHNIQUE: Imaging protocol: Real-time transabdominal pelvic ultrasound with image documentation. Complete exam. COMPARISON: US PELVIC NON-OB COMPLETE 07/29/2014 3:53 PM FINDINGS: Uterus/cervix: The uterus measures 6.9 cm in its cephalocaudad dimension and 3.2 x 3.9 cm in its AP and lateral dimensions transabdominal. The uterus measures 7.2 cm in its cephalocaudad dimension and 2.8 x 4.0 cm in its AP and lateral dimensions transvaginal. The endometrium measures 4 mm. Right adnexa: The right ovary measures 2.2 x 2.8 x 1.8 cm and demonstrates blood flow with a resistive index of 0.42. Left adnexa: The left ovary measures 3.3 x 3.5 x 1.6 cm and demonstrates blood flow with resistive index of 0.45. Free fluid: No significant free fluid. Bladder: Normal. IMPRESSION: Negative pelvic sonogram. Bilateral ovarian blood flow is noted. Electronically signed by: Narayan Anders On 07/20/2018 22:32:26 PM
[2018-07-20 22:41] LABS: ALBUMIN 4.5 GM/DL (3.2-5.2); ALT/SGPT 39 U/L (12-78); BILIRUBIN,DIRECT 0.2 MG/DL (0.0-0.2); BILIRUBIN,TOTAL 0.6 MG/DL (0.2-1.0); BLOOD UREA NITROGEN 10 MG/DL (7-18); CARBON DIOXIDE LEVEL 27 MEQ/L (21-32); CHLORIDE LEVEL 107 MEQ/L (98-107); CREATININE FOR GFR 0.76 MG/DL (0.55-1.30); GLOMERULAR FILTRATION RATE > 60.0 (>60); GLUCOSE, FASTING 82 MG/DL (70-100); LIPASE 93 U/L (73-393); POTASSIUM SERUM 3.7 MEQ/L (3.5-5.1); SODIUM LEVEL 139 MEQ/L (136-145); TOTAL PROTEIN 7.5 GM/DL (6.4-8.2)
[2018-07-20] MEDS ORDERED: KETOROLAC 30 MG/ML VIAL (J1885) IV ONE (22:45)
[2018-07-20] MEDS ORDERED: ISOVUE-370 76% 100ML VIAL (Q9967) As Ordered ONE (22:55)
--- NOTE | 2018-07-21 00:04 | REPVR ---
EXAM: CT Abdomen and Pelvis With Contrast EXAM DATE/TIME: 07/20/2018 10:35 PM CLINICAL HISTORY: 33 years old, female; Abdominal pain; Generalized; Additional info: Eleazar flank, lower abd and back pain TECHNIQUE: Imaging protocol: Axial computed tomography images of the abdomen and pelvis with intravenous contrast. Coronal and sagittal reformatted images were created and reviewed. Radiation optimization: All CT scans at this facility use at least one of these dose optimization techniques: automated exposure control; mA and/or kV adjustment per patient size (includes targeted exams where dose is matched to clinical indication); or iterative reconstruction. Contrast material: ISO; Contrast volume: 100 ml; Contrast route: AC; COMPARISON: CT ABD/PEL W/IV CONTRAST ONLY 10/09/2016 9:22 PM FINDINGS: ABDOMEN: Liver: Normal. No mass. Gallbladder and bile ducts: Normal. No calcified stones. No ductal dilation. Pancreas: Normal. No ductal dilation. Spleen: Normal. No splenomegaly. Adrenals: Normal. No mass. Kidneys and ureters: Normal. No hydronephrosis. Stomach and bowel: Normal. No obstruction. No mucosal thickening. Appendix: A normal appendix is seen. PELVIS: Bladder: There is bladder wall thickening, however, the bladder is nondistended and is nonspecific. Reproductive: Unremarkable as visualized. ABDOMEN and PELVIS: Intraperitoneal space: Normal. No free air. No significant fluid collection. Bones/joints: No acute fracture. No dislocation. Soft tissues: Unremarkable. Vasculature: Normal. No abdominal aortic aneurysm. Lymph nodes: Normal. No enlarged lymph nodes. IMPRESSION: Negative CT abdomen/pelvis with little change from 10/09/2016. Electronically signed by: Narayan Anders On 07/21/2018 00:04:18 AM
[2018-07-21 00:52] VITALS: BP 124/68
== END 2018-07-21 00:53 | disposition home or self-care (01) ==
LOC: M ED 20:36
DX: R10.9 Unspecified abdominal pain (principal)
CPT/HCPCS: 74177; 76830; 76856; 80048; 80076; 83605; 83690; 85025; 93976; 96360; 96361; 99284; Q9967

== ENCOUNTER → 2018-07-20 | Outpatient (REF) | payer OTHER | LOC: M LAB REF 10:40 | PROVIDERS: ATTEND Physician Assistant Medical | DX: R10.9 Unspecified abdominal pain (principal) ==

== ENCOUNTER → 2018-11-05 | Outpatient (REF) | payer OTHER ==
[2018-11-05 15:20] LABS: BASO % 0.4 % (0.0-1.0); EOS # 0.1 10^3/uL (0.0-0.50); EOS % 1.4 % (0.0-3.0); HEMATOCRIT 38.4 % (36.0-47.0); HEMOGLOBIN 12.6 g/dl (12.0-15.5); LYMPH # 2.4 10^3/uL (1.5-4.5); LYMPH % 30.8 % (24.0-44.0); MEAN CORPUSCULAR HEMOGLOBIN 30.4 pg (27.0-33.0); MEAN CORPUSCULAR HGB CONC 32.8 g/dl (32.0-36.5); MEAN CORPUSCULAR VOLUME 92.5 fl (80.0-96.0); MONO # 0.3 10^3/uL (0.0-0.8); MONO % 3.9 % (0.0-5.0); NEUTROPHILS # 4.9 10^3/uL (1.8-7.7); NEUTROPHILS % 63.4 % (36.0-66.0); PLATELET COUNT, AUTOMATED 248 10^3/uL (150-450); RED BLOOD COUNT 4.15 10^6/uL (4.00-5.40); WHITE BLOOD COUNT 7.8 10^3/uL (4.0-10.0)
== END ==
LOC: M LABDRWAD 15:08
PROVIDERS: ATTEND Physician Assistant
DX: R10.9 Unspecified abdominal pain (principal)

== ENCOUNTER → 2018-11-05 | Outpatient (REF) | payer OTHER | LOC: M LAB REF 14:52 | PROVIDERS: ATTEND Physician Assistant | DX: R10.9 Unspecified abdominal pain (principal) ==

== ENCOUNTER → 2018-11-08 | Outpatient (REF) | payer OTHER ==
[~2018-11-08] MED LIST changes: +CYCL5TAB PO; +KETO10TAB PO
[2018-11-08 20:08] LABS: FREE T4 0.9 NG/DL (0.76-1.46); THYROID STIMULATING HORMONE 1.33 uIU/ML (0.358-3.740)
== END ==
LOC: M LABDRWAD 18:29
PROVIDERS: ATTEND Physician Assistant Medical
DX: R63.5 Abnormal weight gain (principal)

== ENCOUNTER → 2018-11-09 | Outpatient (CLI) | payer OTHER ==
--- NOTE | 2018-11-15 23:42 | ECWPNPC ---
PATIENT NAME: GERARDO ARNETT : 1985 GENDER: FEMALE VISIT DATE: 11/09/2018 DISCHARGE DATE: 11/09/18 1310 VISIT LOCKED DATE TIME: PHYSICIAN: YOAV DALEY MD RESOURCE: YOAV DALEY MD REASON FOR APPOINTMENT 1. ILIOINGUINAL NERVE ENTRAPMENT/POSSIBLE TPI HISTORY OF PRESENT ILLNESS PAIN SCREENING: PATIENT HAS A COMPLAINT OF ACUTE OR CHRONIC PAIN :YES 33 YEAR OLD FEMALE PATIENT WITH A HISTORY OF CHRONIC PELVIC AND LOW BACK PAIN. THE PATIENT DESCRIBES THE PAIN TENDER, SHARP, AND CONTINUOUS WITH A PAIN SCORE OF 8-10/10 DEPENDING ON PHYSICAL ACTIVITY. THE PATIENT STATES HER PELVIC PAIN, MAINLY ON HER LEFT SIDE, BEGAN IN JUNE 2015 AFTER SHE HAD A DELIVERY AND HER LOW BACK PAIN WOULD OCCASIONALLY OCCUR AFTERWARD WELL. THE PATIENT SAYS SHE WAS REFERRED BY HER PRIMARY TO SEE HER SENIOR POLICY ASSOCIATE, WHO BELIEVES ITS A POSSIBLE ILIOINGUINAL NERVE ISSUE. THE PATIENT SAYS HER PAIN CAUSES NAUSEA AND ABDOMINAL DISCOMFORT AND THERE IS TENDERNESS TO TOUCH NEAR THE SCAR AND LEFT LOWER BACK AREA. THE PATIENT MENTIONS SHE DOES NOT HAVE NUMBNESS DOWN HER LEGS. THE PATIENT STATES HER MAIN CONCERN IS FINDING OUT WHAT IS CAUSING HER PAIN. PATIENT DENIES UNEXPLAINABLE WEIGHT LOSS, FEVER, CHILLS, NEW CHANGES ON HER URINARY OR BOWEL CONTROL. THE PATIENT STATES SHE EXPERIENCES BOWEL CHANGES WHEN SHE IS IN PAIN. 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 1 SON(S) , 1 DAUGHTER(S) - HEALTHY. MATERNAL AUNT WITH BREAST CANCER IN HER 40'S, IN HER 50'S, FROM DOWN'S SYNDROME. SECOND MATERNAL AUNT WITH BREAST CANCER EARLY 60'S, DOING WELL. DENIES OVARIAN OR COLON CANCER IN THE FAMILY. NO FAMILY HX OF THYROID PROBLEMS. SOCIAL HISTORY GENERAL: TOBACCO USE ARE YOU A:FORMER SMOKER HOW LONG HAS IT BEEN SINCE YOU LAST SMOKED?6-12 MONTHS ADDITIONAL FINDINGS: TOBACCO USERLIGHT CIGARETTE SMOKER ((1-9 CIGS/DAY) OTHERS AT HOME: BOYFRIEND. DIET: WELL BALANCED DIET, HX ANOREXIA, RESOLVED THROUGH COUNSELING.. LANGUAGE LANGUAGES SPOKEN:AZERI DOMESTIC VIOLENCE NONE. RECREATIONAL DRUG USE DENIES. EXERCISE: 1 X WEEKLY AT GYM.. LEARNING BARRIERS / SPECIAL NEEDS BARRIERS TO LEARNING?NO HEARING IMPAIRED?NO VISION IMPAIRED?NO COGNITIVELY IMPAIRED?NO READINESS TO LEARN?YES LEARNING PREFERENCES?NO LEARNING CAPABILITIES PRESENT?YES EMOTIONAL BARRIERS?NO SPECIAL DEVICES?NO PAIN CLINIC PFS, CLERGY, PUBLIC HEALTH REFERRALS HAS THE PATIENT BEEN EDUCATED REGARDING HIS/HER PLAN OF CARE?YES HAS THE PATIENT BEEN EDUCATED REGARDING PAIN, THE RISK FOR PAIN, THE IMPORTANCE OF EFFECTIVE PAIN MANAGEMENT, AND THE PAIN ASSESSMENT PROCESS?YES CAFFEINE 1-2 DAILY. ADVANCE DIRECTIVE ADVANCE DIRECTIVE DISCUSSED WITH PATIENT:YES DECLINED HOAHAOISM [id number] SCIENTOLOGY MARITAL STATUS: .. OCCUPATION: [employer]. HOSPITALIZATION/MAJOR DIAGNOSTIC PROCEDURE NO HOSPITALIZATION HISTORY. REVIEW OF SYSTEMS REVIEWED BY: PROVIDER: YOAV DALEY MD . CONSTITUTIONAL: ANY CHANGE IN YOUR MEDICAL CONDITION? NO . CHILLS NO . FEVER NO . INFECTION: DO YOU HAVE NEW INFECTIONS? NO . DO YOU HAVE HISTORY OF MRSA? NO . MUSCULOSKELETAL: ANY NEW PATTERNS OF PAIN OR NUMBNESS? NO . SYTEMIC LUPUS NO . GASTROENTEROLOGY: ANY NEW CHANGE IN BOWEL CONTROL? NO . BARRETTS ESOPHAGUS NO . CIRRHOSIS NO . HEPATITIS NO . LIVER FAILURE NO . ACID REFLUX NO . UNEXPLAINED WEIGHT LOSS NO . GENITOURINARY: ANY NEW CHANGE IN BLADDER CONTROL? NO . IS THERE A CHANCE YOU COULD BE ? NO . HEMATOLOGY/LYMPH: DO YOU TAKE ANY BLOOD THINNERS? (FOR EXAMPLE- COUMADIN, PLAVIX, AGGRENOX, PLATEL, PRADAXA, OR XARELTO) NO . WHEN WAS YOUR LAST DOSE? DATE: TIME: . LOW PLATELET COUNT NO . SICKLE CELL DISEASE NO . VON WILLIEBRANDS NO . FACTOR V LEIDEN NO . THALLASEMIA NO . ANEMIA NO . EASY BRUISING NO . NEUROLOGY: HAVE YOU FALLEN IN THE PAST 12 MONTHS? NO . ANY NEW EXTREMITY NUMBNESS OR WEAKNESS? NO . HEAD INJURY NO . DEMENTIA NO . CEREBRAL PALSY NO . MULTIPLE SCLEROSIS NO . DIZZINESS NO . HEADACHE NO . STROKES NO . VERTIGO NO . CARDIOLOGY: DO YOU HAVE A PACEMAKER OR DEFIBRILLATOR? NO . ANGINA NO . HEART ATTACK NO . HEART SURGERY NO . CONGESTIVE HEART FAILURE/FLUID OVERLOAD NO . CHEST PAIN NO . HIGH BLOOD PRESSURE NO . IRREGULAR HEART BEAT NO . RESPIRATORY: HAVE YOU BEEN SICK IN THE PAST WEEK? NO . FEVER NO . FLU LIKE SYMPTOMS? NO . CPAP NO . BYPAP NO . ASTHMA NO . EMPHYSEMA NO . CHRONIC LUNG DISEASES NO . SHORTNESS OF BREATH ON EXERTION NO . COUGH NO . SNORING NO . INTEGUMENTARY: DO YOU HAVE ANY RASHES OR OPEN SORES? NO . ALLERGIC/IMMUNO: ARE YOU ALLERGIC TO IV DYE? NO . ANY NEW ALLERGIES? NO . PSYCHIATRIC: DO YOU HAVE THOUGHTS OF HURTING YOURSELF OR SOMEONE ELSE? NO . ARE YOU ABUSED, NEGLECTED, OR IN AN UNSAFE ENVIRONMENT? NO . ENDOCRINOLOGY: ARE YOU DIABETIC? NO . THYROID DISORDER NO . OTHER: DO YOU NEED ANY PRESCRIPTIONS? NO . IF YES, PLEASE LIST: ____ . ANY NEW PROBLEMS WITH YOUR MEDICATIONS? NO . WHEN DID YOU LAST EAT? ____ . WHEN DID YOU LAST DRINK? ____ . WHAT DID YOU LAST DRINK? ____ . NAME OF PERSON DRIVING YOU HOME? ____ . DO YOU HAVE ANY OTHER QUESTIONS OR CONCERNS NO . VITAL SIGNS WT 169 LBS, HT 64 IN, BMI 29.01 INDEX, BP 120/77 MM HG, HR 73 /MIN, RR 18 /MIN, TEMP 97.3 F, OXYGEN SAT % 100%, NA INITIALS AW 1153, REVIEWED BY: EM. EXAMINATION GENERAL EXAMINATION: PATIENT IS ALERT O X 3 AND COOPERATIVE. LUNGS CLEAR, TO AUSCULTATION. HEART: NO MURMURS OR GALLOPS; FACIAL CRANIAL NERVES ARE GROSSLY NORMAL. GOOD SYMMETRY OF FACIAL MUSCLE MOVEMENT. NORMAL VISUAL CASTRO. PAIN INCREASES OVER THE LUMBAR FACET JOINTS WITH EXTENSION AND LATERAL ROTATION OF THE BACK. SOME DISCOMFORT AND TENDERNESS IN THE LEFT LOWER BACK AREA. PRESENCE OF BANDS OF TISSUE AND TRIGGER POINTS WITH RESTRICTION OF MOVEMENT OF THE LEFT LOWER BACK AREA. LEFT LEG IS WEAKER AT EXTENSION AND FLEXION. STRAIGHT LEG RAISE OF BOTH LEGS IS NEGATIVE FOR RADICULOPATHY. FABERE TEST IS NEGATIVE. NO PAIN PRESENT IN THE SACROILIAC AREA. PRESSURE OVER THE ANTERIOR SUPERIOR ILIAC SPINE CLOSE TO ILIOINGUINAL NERVE DOES NOT INCREASE IN PAIN. ASSESSMENTS PELVIC PAIN - R10.2 (PRIMARY) NEURALGIA - M79.2 LOW BACK PAIN - M54.5 OTHER CHRONIC PAIN - G89.29 TREATMENT PELVIC PAIN CLINICAL NOTES: WE DISCUSSED SEVERAL ISSUES WITH MS. ARNETT'S PAIN MANAGEMENT CASE. THE PATIENT'S CASE IS NOT CLEAR TO WHAT IS CAUSING THE PAIN. THE PATIENT HAS A PAST HISTORY OF BACK PAIN AND HAD LUMBAR MRI'S DONE. I BELIEVE THE PATIENT'S PAIN IS COMING MORE FROM THE ABDOMINAL/PELVIC REGION, THEREFORE I WOULD LIKE THE PATIENT'S PRIMARY CARE PHYSICIAN TO CONSIDER REQUESTING PELVIC AND ABDOMINAL CT SCAN'S TO BE PERFORMED. I MAY CONSIDER DOING A TRIGGER POINT INJECTION OR AN ILIOINGUINAL NERVE BLOCK IN THE FUTURE. I AM STARTING THE PATIENT ON GABAPENTIN 100 MG TO HELP WITH NEUROPATHIC PAIN. I PROVIDED A SCHEDULE FOR THE PATIENT TO SLOWLY INCREASE UP TO 3 TABLETS A DAY TO AVOID ANY ADVERSE SIDE EFFECTS. THE PATIENT WILL FOLLOW UP WITH THE NURSE PRACTITIONER IN 2 MONTHS. INSTRUCTIONS WERE GIVEN, QUESTIONS WERE ANSWERED, PATIENT REPORTS UNDERSTANDING AND AGREES WITH THE PLAN. I, ALISSA IBARRA, DOCUMENTED THE ABOVE INFORMATION ACTING A SCRIBE FOR DR. DALEY. I HAVE REVIEWED THE ABOVE DOCUMENT, WRITTEN BY ALISSA KOCH AND I VERIFY THAT IT IS ACCURATE. DEAR DR. SHAISTA CHAIREZ MD: THANK YOU FOR YOUR KIND REFERRAL OF GERARDO ARNETT. IF YOU WANT TO DISCUSS HER CASE WITH ME PLEASE CALL ME AT THE PAIN CENTER AT [phone]. SINCERELY, YOAV DALEY MD PAIN MEDICINE . OTHERS START GABAPENTIN CAPSULE, 100 MG, 1 CAPSULE, ORALLY FOR PAIN, THREE TIMES DAILY MDD3, 30 DAY(S), 90, REFILLS 1 NOTES: GABAPENTIN MATERIAL WAS PRINTED. PROCEDURE CODES FA211 ESTABILISHED PATIENT [facility] FACILITY CHARGE G7143 CURRENT MEDS W/DOSAGES DOCUMENTED G6473 PAIN ASSESS POS TOOL F/U PLAN DOC DISPOSITION & COMMUNICATION FOLLOW UP 2 MONTHS (REASON: F/U W/ CALL CENTER ASSOCIATE FOR MEDS) ELECTRONICALLY SIGNED BY YOAV DALEY MD, MD ON 11/15/2018 AT 01:33 PM EDT DISCLAIMER : THIS IS A VISIT SUMMARY EXTRACTED FROM THE [employer] CHART. IT IS NOT A COPY OF THE [employer] PROGRESS NOTE. ANTONINA
== END ==
LOC: M PAIN 11:30
PROVIDERS: ATTEND Anesthesiology
DX: R10.2 Pelvic and perineal pain (principal); M79.2 Neuralgia and neuritis, unspecified; M54.5 Low back pain; G89.29 Other chronic pain; J45.909 Unspecified asthma, uncomplicated; Z86.59 Personal history of other mental and behavioral disorders; Z87.891 Personal history of nicotine dependence; Z88.5 Allergy status to narcotic agent; Z91.09 Other allergy status, other than to drugs and biological substances; Z79.899 Other long term (current) drug therapy

== ENCOUNTER 2018-11-10 20:38 | Emergency (ER) | payer OTHER ==
[~2018-11-10] VITALS: Ht 162.6 cm; Wt 87.7 kg
[~2018-11-10 20:38] MED LIST changes: -CYCL5TAB PO; -KETO10TAB PO
[2018-11-10 21:16] LABS: BASO # 0.1 10^3/uL (0.0-0.2); BASO % 0.6 % (0.0-1.0); EOS # 0.1 10^3/uL (0.0-0.50); EOS % 1.3 % (0.0-3.0); HEMOGLOBIN 13.5 g/dl (12.0-15.5); LYMPH # 3.6 10^3/uL (1.5-4.5); LYMPH % 41.5 % (24.0-44.0); MEAN CORPUSCULAR HGB CONC 32.9 g/dl (32.0-36.5); MEAN CORPUSCULAR VOLUME 91.1 fl (80.0-96.0); MONO # 0.3 10^3/uL (0.0-0.8); MONO % 3.9 % (0.0-5.0); NEUTROPHILS # 4.6 10^3/uL (1.8-7.7); NEUTROPHILS % 52.6 % (36.0-66.0); PLATELET COUNT, AUTOMATED 279 10^3/uL (150-450); WHITE BLOOD COUNT 8.8 10^3/uL (4.0-10.0)
[2018-11-10 21:33] LABS: ALBUMIN 4.6 GM/DL (3.2-5.2); ALT/SGPT 25 U/L (12-78); BILIRUBIN,DIRECT 0.2 MG/DL (0.0-0.2); BILIRUBIN,TOTAL 0.6 MG/DL (0.2-1.0); BLOOD UREA NITROGEN 10 MG/DL (7-18); CARBON DIOXIDE LEVEL 25 MEQ/L (21-32); CHLORIDE LEVEL 105 MEQ/L (98-107); CREATININE FOR GFR 0.84 MG/DL (0.55-1.30); GLOMERULAR FILTRATION RATE > 60.0 (>60); GLUCOSE, FASTING 81 MG/DL (70-100); LIPASE 80 U/L (73-393); POTASSIUM SERUM 3.1 MEQ/L (3.5-5.1); SODIUM LEVEL 139 MEQ/L (136-145)
[2018-11-10] MEDS ORDERED: ISOVUE-370 76% 100ML VIAL (Q9967) As Ordered ONE (21:36)
[2018-11-10] MEDS ORDERED: NS 1,000 ML IV ONE (21:45)
[2018-11-10] MEDS ORDERED: KETOROLAC 30 MG/ML VIAL (J1885) IV ONE (21:45)
[2018-11-10] MEDS ORDERED: ONDANSETRON 4MG/2ML VIAL (J2405) IV ONE (21:45)
--- NOTE | 2018-11-10 22:08 | REPVR ---
EXAM: CT Abdomen and Pelvis With Contrast EXAM DATE/TIME: 11/10/2018 9:40 PM CLINICAL HISTORY: 33 years old, female; Abdominal pain; Generalized; Additional info: Generalized abd pain TECHNIQUE: Imaging protocol: Computed tomography images of the abdomen and pelvis with intravenous contrast. Radiation optimization: All CT scans at this facility use at least one of these dose optimization techniques: automated exposure control; mA and/or kV adjustment per patient size (includes targeted exams where dose is matched to clinical indication); or iterative reconstruction. Contrast material: ISOVUE 370; Contrast volume: 100 ml; Contrast route: IV; COMPARISON: CT ABD/PEL W/IV CONTRAST ONLY 07/20/2018 11:05 PM FINDINGS: Lungs: No suspicious mass or airspace process in the visualized lung bases. Liver: Liver is unremarkable except for focal fatty infiltration anteriorly. Gallbladder and bile ducts: Gallbladder is present and shows no evidence of gallstone. Pancreas: Pancreas appears normal. No focal mass or peripancreatic inflammation. Spleen: Spleen appears homogeneous without focal mass. Adrenals: Adrenal glands are normal in appearance. Kidneys and ureters: Kidneys appear normal, with no stone, solid mass or hydronephrosis. Stomach and bowel: No evidence of small bowel obstruction. No evidence of acute diverticulitis. Appendix: Normal caliber appendix is identified, with no adjacent inflammation. Intraperitoneal space: No pneumoperitoneum. No abnormal pelvic mass. Vasculature: Main portal and splenic veins enhance normally. No aortic aneurysm. Lymph nodes: No enlarged lymph nodes. Bladder: Bladder appears normal. Bones/joints: Transitional vertebral segment is present at the lumbosacral junction. IMPRESSION: No acute or concerning abdominal or pelvic process. Electronically signed by: Yazan Vera On 11/10/2018 22:08:39 PM
[2018-11-10 22:31] VITALS: BP 128/77
== END 2018-11-10 22:33 | disposition home or self-care (01) ==
LOC: M ED 20:38
DX: R10.9 Unspecified abdominal pain (principal); J45.909 Unspecified asthma, uncomplicated; M48.02 Spinal stenosis, cervical region; Z88.5 Allergy status to narcotic agent; Z79.899 Other long term (current) drug therapy; Z79.51 Long term (current) use of inhaled steroids
CPT/HCPCS: 74177; 80048; 80076; 81001; 83690; 84702; 85025; 96374; 96375; 99284; J1885; J2405; Q9967

== ENCOUNTER 2019-01-07 12:39 | Emergency (ER) | payer OTHER ==
[~2019-01-07] VITALS: Ht 162.6 cm; Wt 90.0 kg
[2019-01-07] MEDS ORDERED: KETOROLAC TROMETHAMINE 10 MG TAB PO ONE (14:45)
[2019-01-07 14:59] LABS: BASO % 0.6 % (0.0-1.0); EOS # 0.1 10^3/uL (0.0-0.5); EOS % 1.5 % (0.0-3.0); HEMATOCRIT 40.4 % (36.0-47.0); HEMOGLOBIN 13.2 g/dl (12.0-15.5); LYMPH # 2.1 10^3/uL (1.5-5.0); LYMPH % 31.7 % (24.0-44.0); MEAN CORPUSCULAR HEMOGLOBIN 29.7 pg (27.0-33.0); MEAN CORPUSCULAR HGB CONC 32.7 g/dl (32.0-36.5); MEAN CORPUSCULAR VOLUME 90.8 fl (80.0-96.0); MONO # 0.3 10^3/uL (0.0-0.8); MONO % 3.8 % (0.0-5.0); NEUTROPHILS # 4.1 10^3/uL (1.5-8.5); NEUTROPHILS % 62.2 % (36.0-66.0); PLATELET COUNT, AUTOMATED 277 10^3/uL (150-450); RED BLOOD COUNT 4.45 10^6/uL (4.00-5.40); WHITE BLOOD COUNT 6.5 10^3/uL (4.0-10.0)
[2019-01-07 15:28] LABS: BLOOD UREA NITROGEN 14 MG/DL (7-18); CALCIUM LEVEL 9.5 MG/DL (8.5-10.1); CARBON DIOXIDE LEVEL 25 MEQ/L (21-32); CHLORIDE LEVEL 109 MEQ/L (98-107); CK-MB VALUE MASS 3.8 NG/ML (<3.6); CPK CREATINE PHOSPHOKINASE 200 U/L (26-192); CREATININE FOR GFR 0.73 MG/DL (0.55-1.30); GLOMERULAR FILTRATION RATE > 60.0 (>60); GLUCOSE, FASTING 95 MG/DL (70-100); MAGNESIUM LEVEL 2.2 MG/DL (1.8-2.4); POTASSIUM SERUM 4.3 MEQ/L (3.5-5.1); SODIUM LEVEL 139 MEQ/L (136-145); TROPONIN I < 0.02 NG/ML (< 0.10)
[2019-01-07] MEDS ORDERED: KETO10TAB PO (16:21)
[2019-01-07] MEDS ORDERED: CYCL5TAB PO (16:21)
[2019-01-07 16:30] VITALS: BP 111/65
--- NOTE | 2019-01-08 10:02 | ECGEPIP ---
[facility] - ED Test Date: 2019-01-07 Pat Name: GERARDO ARNETT Department: Room: - Gender: Female [employer]: : 1985 Requested By: Jr Sanders Order Number: [id number] Reading MD: Lissett Mcgraw Measurements Intervals Meraux Rate: 82 P: 42 CO: 112 QRS: 74 QRSD: 110 T: 41 QT: 377 QTc: 440 Interpretive Statements SINUS RHYTHM WITH SHORT CO INTERVAL NO PRIOR Electronically Signed on 01-08-2019 10:02:32 EDT by Lissett Mcgraw
== END 2019-01-07 16:32 | disposition home or self-care (01) ==
LOC: M ED 12:39
DX: S29.011A Strain of muscle and tendon of front wall of thorax, initial encounter (principal); J45.909 Unspecified asthma, uncomplicated; M48.02 Spinal stenosis, cervical region; X58.XXXA Exposure to other specified factors, initial encounter; Y92.89 Other specified places as the place of occurrence of the external cause

== ENCOUNTER → 2019-01-18 | Outpatient (REF) | payer OTHER ==
[~2019-01-18] MED LIST changes: +CYCL5TAB PO; +KETO10TAB PO
[2019-01-22 14:07] LABS: HPV HYBRID CAPTURE II Negative (Negative)
== END ==
LOC: M LAB REF 13:36
PROVIDERS: ATTEND Specialist
DX: Z12.4 Encounter for screening for malignant neoplasm of cervix (principal)

== ENCOUNTER → 2019-04-12 | Outpatient (REF) | payer OTHER | LOC: M LAB REF 12:50 | PROVIDERS: ATTEND Physician Assistant | DX: N39.0 Urinary tract infection, site not specified (principal) ==

== ENCOUNTER → 2019-05-09 | Outpatient (CLI) | payer OTHER ==
--- NOTE | 2019-05-09 16:27 | REPPI ---
Clinical: Pelvic cramping. Technique: Single supine view of the abdomen and pelvis. Findings: Visualized bowel gas pattern is nonspecific. No obvious organomegaly. No abnormal calcifications. Skeletal structures are intact. Impression: Nonspecific abdominal radiograph. Electronically Signed by Stephan Do MD 05/09/2019 04:19 P
== END ==
LOC: M PLAIMG 15:46
PROVIDERS: ATTEND Nurse Practitioner Adult Health
DX: R10.2 Pelvic and perineal pain (principal)

== ENCOUNTER → 2019-08-02 | Outpatient (CLI) | payer OTHER ==
--- NOTE | 2019-08-05 11:49 | REP ---
DIGITAL DIAGNOSTIC BILATERAL MAMMOGRAPHY WITH CAD, 3D TOMOGRAPHY, AND FOCUSED RIGHT BREAST SONOGRAPHY: HISTORY: Positive family history breast carcinoma. Palpable lump right breast. Approximately 2-o'clock to 4-o'clock position. No comparison mammography. MAMMOGRAPHIC FINDINGS: A skin marker is affixed to the skin at the site of the palpable lump in the right breast. Routine views of the right breast are augmented by magnified focal spot compression images. Scattered fibroglandular elements are seen. The Volpara volumetric breast density category is: B. No dominant density, architectural distortion, microcalcification, or worrisome skin changes appreciated on either side. No suspicious mammographic abnormality. SONOGRAPHIC FINDINGS: Focused right breast sonography is performed in the area of palpable lump, 2-o'clock 4-o'clock position. Heterogeneous fibroglandular background echotexture is seen. No sonographically suspicious finding. IMPRESSION: BIRADS 1: BI-RADS/ACR category 1 mammogram. Negative Mammogram. BI-RADS category 1 findings. Clinical followup is advised. Negative mammography and sonographic imaging. This mammogram was interpreted with the aid of an FDA-approved computer-aided detection system. The patient states she had a clinical breast exam in July 2019. The patient letter being requested is M2. This patient's estimated Tyrer-Cuzick lifetime risk assessment for breast cancer is 19.7 %.
== END ==
LOC: M WHC 12:15
PROVIDERS: ATTEND Nurse Practitioner Women's Health
DX: N63.10 Unspecified lump in the right breast, unspecified quadrant (principal); Z80.3 Family history of malignant neoplasm of breast
CPT/HCPCS: 76642; 77066; G0279

== ENCOUNTER → 2019-08-12 | Outpatient (CLI) | payer OTHER ==
--- NOTE | 2019-08-12 09:18 | REP ---
Clinical: Nontraumatic left foot pain Technique: AP, lateral, bilateral oblique views left foot . Findings: The osseous structures and joint spaces are intact and normal. Incidental ossicle noted adjacent to the cuboid bone. There is no evidence for acute fracture or dislocation. Surrounding soft tissues are unremarkable. No subcutaneous emphysema or radiodense foreign body. Impression: Normal left foot series . No acute fracture or dislocation. Electronically Signed by Stephan Do MD 08/12/2019 09:10 A
== END ==
LOC: M ADAMS 08:48
PROVIDERS: ATTEND Physician Assistant
DX: M79.672 Pain in left foot (principal)

== ENCOUNTER 2019-12-30 19:50 | Emergency (ER) | payer OTHER ==
[~2019-12-30] VITALS: Ht 162.6 cm; Wt 72.7 kg
[2019-12-30] MEDS ORDERED: AUGM875T28 PO (20:04)
[2019-12-30] MEDS ORDERED: NS 1,000 ML IV ONE (20:45)
[2019-12-30 21:13] LABS: BASO % 0.5 % (0.0-1.0); EOS # 0.2 10^3/uL (0.0-0.5); EOS % 3.2 % (0.0-3.0); HEMATOCRIT 38.6 % (36.0-47.0); HEMOGLOBIN 12.9 g/dl (12.0-15.5); LYMPH # 1.6 10^3/uL (1.5-5.0); LYMPH % 28.8 % (24.0-44.0); MEAN CORPUSCULAR HEMOGLOBIN 29.3 pg (27.0-33.0); MEAN CORPUSCULAR HGB CONC 33.4 g/dl (32.0-36.5); MEAN CORPUSCULAR VOLUME 87.7 fl (80.0-96.0); MONO # 0.3 10^3/uL (0.0-0.8); MONO % 5.6 % (0.0-5.0); NEUTROPHILS # 3.4 10^3/uL (1.5-8.5); NEUTROPHILS % 61.7 % (36.0-66.0); PLATELET COUNT, AUTOMATED 237 10^3/uL (150-450); WHITE BLOOD COUNT 5.6 10^3/uL (4.0-10.0)
[2019-12-30 21:31] LABS: ALBUMIN 3.6 GM/DL (3.2-5.2); ALT/SGPT 21 U/L (12-78); BILIRUBIN,DIRECT 0.2 MG/DL (0.0-0.2); BILIRUBIN,TOTAL 0.5 MG/DL (0.2-1.0); HCG, SERUM QUANTITATIVE < 1.0 MIU/ML; LIPASE 53 U/L (73-393); TOTAL PROTEIN 6.4 GM/DL (6.4-8.2)
[2019-12-30 22:45] VITALS: BP 108/65
== END 2019-12-30 23:05 | disposition home or self-care (01) ==
LOC: M ED 19:50
DX: K62.5 Hemorrhage of anus and rectum (principal); R11.2 Nausea with vomiting, unspecified; R19.7 Diarrhea, unspecified; Z88.6 Allergy status to analgesic agent

== ENCOUNTER → 2020-01-31 | Outpatient (REF) | payer OTHER | LOC: M SFHCWAGY 13:14 | PROVIDERS: ATTEND Specialist | DX: Z01.419 Encounter for gynecological examination (general) (routine) without abnormal findings (principal); Z12.4 Encounter for screening for malignant neoplasm of cervix ==

== ENCOUNTER → 2020-03-26 | Outpatient (REF) | payer OTHER | LOC: M SFHCPLAZ 10:08 | PROVIDERS: ATTEND Nurse Practitioner Adult Health | DX: J34.89 Other specified disorders of nose and nasal sinuses (principal); Z20.822 Contact with and (suspected) exposure to COVID-19 ==

== ENCOUNTER → 2020-08-31 | Outpatient (CLI) | payer OTHER ==
--- NOTE | 2020-09-01 07:25 | REP ---
INDICATION: LUMBAGO WITH SCIATICA, LEFT SIDE COMPARISON: None. TECHNIQUE: AP, lateral, bilateral oblique, and coned-down views of the lumbar spine. FINDINGS: Alignment and lordosis maintained. Vertebral bodies are intact. Disc spaces are relatively normal/age-appropriate. No acute fracture/compression injury or subluxation. No obvious spondylolysis or spondylolisthesis.. IMPRESSION: Normal age-appropriate lumbosacral Spine series. <Electronically signed by Stephan Do > 09/01/20 0152
== END ==
LOC: M ADAMS 13:08
PROVIDERS: ATTEND Nurse Practitioner Adult Health
DX: M54.42 Lumbago with sciatica, left side (principal)

== ENCOUNTER → 2020-09-11 | Outpatient (CLI) | payer OTHER ==
--- NOTE | 2020-09-11 12:08 | REPVR ---
PROCEDURE INFORMATION: Exam: MR Lumbar Spine Without Contrast Exam date and time: 09/11/2020 10:13 AM Age: 35 years old Clinical indication: Pain; Lumbago with sciatica; Left; Additional info: Lumbago with sciatica left TECHNIQUE: Imaging protocol: Multiplanar magnetic resonance images of the lumbar spine without intravenous contrast. COMPARISON: DX SPINE LS COMPLETE 08/31/2020 12:52 PM FINDINGS: The numbering scheme assumes the presence of a sacralized L5 body with a rudimentary disc. Vertebrae: There is no fracture or listhesis. Normal vertebral body alignment and heights are preserved. Marrow signal is within normal limits. Spinal cord: Normal signal. No cord compression. There are bilateral sacral perineural cysts. L1-L2: There is shallow disc bulging. There is mild facet and ligamentous hypertrophy. The spinal canal and neural foramina are patent. L2-L3: There is shallow disc bulging. There is mild facet and ligamentous hypertrophy. The spinal canal and neural foramina are patent. L3-L4: There is shallow disc bulging. There is mild facet and ligamentous hypertrophy. The spinal canal and neural foramina are patent. L4-L5: There is shallow disc bulging. There is mild facet hypertrophy. The spinal canal and neural foramina are patent. L5-S1: There is a rudimentary disc. No significant spinal canal stenosis. No neural foraminal stenosis. Soft tissues: Unremarkable. IMPRESSION: Mild degenerative disc disease and spondylosis without canal or neural foraminal compromise. Electronically signed by: Zayra Patrick On 09/11/2020 12:08:03 PM
== END ==
LOC: M RAD 09:43
PROVIDERS: ATTEND Nurse Practitioner Adult Health
DX: M54.42 Lumbago with sciatica, left side (principal)

== ENCOUNTER → 2020-11-06 | Outpatient (REF) | payer OTHER ==
[2020-11-06 17:26] LABS: APPEARANCE, URINE HAZY (CLEAR); BACTERIA, URINE AUTO NEGATIVE (NEGATIVE); BILIRUBIN, URINE AUTO NEGATIVE (NEGATIVE); BLOOD, URINE BLOOD 2+ (NEGATIVE); COLOR, URINE YELLOW (YELLOW); GLUCOSE, URINE (UA) AUTO NEGATIVE (NEGATIVE); KETONE, URINE AUTO NEGATIVE (NEGATIVE); LEUKOCYTE ESTERASE, URINE AUTO NEGATIVE (NEGATIVE); MUCUS, URINE SMALL (NEGATIVE); NITRITE, URINE AUTO NEGATIVE (NEGATIVE); PROTEIN, URINE AUTO NEGATIVE (NEGATIVE); RBC, URINE AUTO 0 /HPF (0-3); SPECIFIC GRAVITY URINE AUTO 1.004 (1.002-1.035); SQUAMOUS EPITHELIAL CELL UR AU 1 /HPF (0-6); UROBILINOGEN, URINE AUTO 0.2 mg/dL (0.0-2.0); WBC, URINE AUTO 0 /HPF (0-3)
== END ==
LOC: M LAB REF 17:01
PROVIDERS: ATTEND Physician Assistant
DX: R10.9 Unspecified abdominal pain (principal)

== ENCOUNTER → 2021-05-03 | Outpatient (REF) | payer OTHER | LOC: M PLALAB 16:11 | PROVIDERS: ATTEND Specialist | DX: Z12.4 Encounter for screening for malignant neoplasm of cervix (principal) ==

== ENCOUNTER → 2021-05-04 | Outpatient (REF) | payer OTHER | LOC: M SFHCWAGY 13:17 | PROVIDERS: ATTEND Specialist | DX: Z12.4 Encounter for screening for malignant neoplasm of cervix (principal); R87.615 Unsatisfactory cytologic smear of cervix ==

== ENCOUNTER → 2021-08-17 | Outpatient (CLI) | payer OTHER ==
[2021-08-17 10:31] LABS: HEMATOCRIT 38.1 % (36.0-47.0); HEMOGLOBIN 12.3 g/dl (12.0-15.5); MEAN CORPUSCULAR HEMOGLOBIN 30.1 pg (27.0-33.0); MEAN CORPUSCULAR HGB CONC 32.3 g/dl (32.0-36.5); MEAN CORPUSCULAR VOLUME 93.2 fl (80.0-96.0); PLATELET COUNT, AUTOMATED 268 10^3/uL (150-450); RED BLOOD COUNT 4.09 10^6/uL (4.00-5.40); WHITE BLOOD COUNT 9.5 10^3/uL (4.0-10.0)
[2021-08-17 11:22] LABS: ALBUMIN 3.5 GM/DL (3.2-5.2); ALT/SGPT 24 U/L (12-78); BILIRUBIN,TOTAL 0.3 MG/DL (0.2-1.0); BLOOD UREA NITROGEN 19 MG/DL (7-18); CARBON DIOXIDE LEVEL 24 MEQ/L (21-32); CHLORIDE LEVEL 110 MEQ/L (98-107); CREATININE FOR GFR 0.72 MG/DL (0.55-1.30); GLOMERULAR FILTRATION RATE > 60.0 (>60); GLUCOSE, FASTING 93 MG/DL (70-100); POTASSIUM SERUM 4.5 MEQ/L (3.5-5.1); SODIUM LEVEL 140 MEQ/L (136-145); TOTAL PROTEIN 6.7 GM/DL (6.4-8.2)
== END ==
LOC: M PLALAB 08:02
PROVIDERS: ATTEND Nurse Practitioner Adult Health
DX: Z00.00 Encounter for general adult medical examination without abnormal findings (principal); Z13.21 Encounter for screening for nutritional disorder

== ENCOUNTER → 2022-01-18 | Outpatient (REF) | payer OTHER ==
[2022-01-18 23:28] LABS: GC DNA AMPLIFICATION NEGATIVE (NEGATIVE)
== END ==
LOC: M LAB REF 20:02
PROVIDERS: ATTEND Physician Assistant
DX: N30.00 Acute cystitis without hematuria (principal)

== ENCOUNTER → 2022-06-24 | Outpatient (REF) | payer OTHER | LOC: M SFHCWAGY 16:56 | PROVIDERS: ATTEND Specialist | DX: Z12.4 Encounter for screening for malignant neoplasm of cervix (principal); R87.612 Low grade squamous intraepithelial lesion on cytologic smear of cervix (LGSIL) ==

== ENCOUNTER → 2022-07-19 | Outpatient (CLI) | payer OTHER ==
[2022-07-19 14:01] LABS: BASO # 0.1 10^3/uL (0.0-0.2); BASO % 1.1 % (0.0-1.0); EOS # 0.1 10^3/uL (0.0-0.5); EOS % 1.9 % (0.0-3.0); HEMATOCRIT 47.4 % (36.0-47.0); HEMOGLOBIN 15.4 g/dl (12.0-15.5); LYMPH # 1.3 10^3/uL (1.5-5.0); LYMPH % 23.1 % (24.0-44.0); MEAN CORPUSCULAR HEMOGLOBIN 30.6 pg (27.0-33.0); MEAN CORPUSCULAR HGB CONC 32.5 g/dl (32.0-36.5); MEAN CORPUSCULAR VOLUME 94.2 fl (80.0-96.0); MONO # 0.4 10^3/uL (0.0-0.8); MONO % 7.6 % (2.0-8.0); NEUTROPHILS # 3.7 10^3/uL (1.5-8.5); NEUTROPHILS % 66.1 % (36.0-66.0); PLATELET COUNT, AUTOMATED 254 10^3/uL (150-450); RED BLOOD COUNT 5.03 10^6/uL (4.00-5.40); WHITE BLOOD COUNT 5.7 10^3/uL (4.0-10.0)
[2022-07-19 14:08] LABS: LIPASE 40 U/L (12-53)
[2022-07-19 14:10] LABS: ALBUMIN 4.2 G/DL (3.2-5.2); ALKALINE PHOSPHATASE 51 U/L (46-116); ALT/SGPT 22 U/L (7.0-40); AST/SGOT 18 U/L (<34); BILIRUBIN,TOTAL 0.2 MG/DL (0.3-1.2); BLOOD UREA NITROGEN 9 MG/DL (9-23); CALCIUM LEVEL 9.3 MG/DL (8.5-10.1); CARBON DIOXIDE LEVEL 29 MMOL/L (20-31); CHLORIDE LEVEL 107 MMOL/L (98-107); CREATININE FOR GFR 0.69 MG/DL (0.55-1.30); GLOMERULAR FILTRATION RATE > 60.0 (>60); GLUCOSE, FASTING 82 MG/DL (60-100); POTASSIUM SERUM 4.2 MMOL/L (3.5-5.1); SODIUM LEVEL 141 MMOL/L (136-145); TOTAL PROTEIN 6.8 G/DL (5.7-8.2)
[2022-07-19 14:12] LABS: C REACTIVE PROTEIN QUANTITATIV < 0.40 MG/DL (<1.0)
[2022-07-19 15:01] LABS: ERYTHROCYTE SEDIMENTATION RATE 13 mm/hr (0-20)
== END ==
LOC: M PLALAB 09:27
PROVIDERS: ATTEND Physician Assistant
DX: R10.2 Pelvic and perineal pain (principal); K21.9 Gastro-esophageal reflux disease without esophagitis; R14.0 Abdominal distension (gaseous); M54.50 Low back pain, unspecified

== ENCOUNTER → 2022-07-21 | Outpatient (CLI) | payer OTHER ==
[~2022-07-21] MED LIST changes: +GASTROGRAFIN SOLUTION 30ML As Ordered ONE; +ISOVUE-370 76% 100ML VIAL As Ordered ONE
== END ==
LOC: M RAD 08:00
PROVIDERS: ATTEND Physician Assistant
DX: N83.201 Unspecified ovarian cyst, right side (principal); R10.2 Pelvic and perineal pain; K21.9 Gastro-esophageal reflux disease without esophagitis; R14.0 Abdominal distension (gaseous); M54.50 Low back pain, unspecified
CPT/HCPCS: 74177; Q9963; Q9967

== ENCOUNTER → 2022-08-01 | Outpatient (REF) | payer OTHER ==
[~2022-08-01] MED LIST changes: -GASTROGRAFIN SOLUTION 30ML As Ordered ONE; -ISOVUE-370 76% 100ML VIAL As Ordered ONE
== END ==
LOC: M SFHCWAGY 18:15
PROVIDERS: ATTEND Specialist
DX: R87.612 Low grade squamous intraepithelial lesion on cytologic smear of cervix (LGSIL) (principal)

== ENCOUNTER → 2022-08-04 | Outpatient (REF) | payer OTHER ==
[2022-08-04 21:27] LABS: APPEARANCE, URINE MANUAL CLEAR (CLEAR); COLOR, URINE MANUAL YELLOW (YELLOW)
[2022-08-04 21:28] LABS: BILIRUBIN, URINE MANUAL NEGATIVE (NEGATIVE); BLOOD URINE MANUAL POSITIVE (NEGATIVE); GLUCOSE, URINE (UA) MANUAL NEGATIVE (NEGATIVE); KETONE, URINE MANUAL NEGATIVE (NEGATIVE); LEUKOCYTE ESTERASE, URINE MAN POSITIVE (NEGATIVE); PH,URINE MAN 7.5 UNITS (5.0 - 7.0); PROTEIN, URINE MANUAL 1+ mg/dL (NEGATIVE); SPECIFIC GRAVITY,URINE MANUAL 1.005 (1.002-1.035); UROBILINOGEN, URINE MANUAL NORMAL (NORMAL)
[2022-08-04 21:29] LABS: NITRITE, URINE MANUAL NEGATIVE (NEGATIVE)
[2022-08-04 21:40] LABS: BACTERIA, URINE MOD AMOUNT; HYALINE CAST, URINE NONE SEEN /lpf (0-1); SQUAMOUS EPITHELIAL CELL URINE LARGE AMOUNT /hpf (SMALL AMT)
== END ==
LOC: M LAB REF 21:21
PROVIDERS: ATTEND Physician Assistant
DX: N39.0 Urinary tract infection, site not specified (principal)

== ENCOUNTER → 2022-09-05 | Outpatient (REF) | payer OTHER ==
[2022-09-05 22:01] LABS: APPEARANCE, URINE CLEAR (CLEAR); BACTERIA, URINE AUTO 1+ (NEGATIVE); BILIRUBIN, URINE AUTO NEGATIVE (NEGATIVE); BLOOD, URINE BLOOD NEGATIVE (NEGATIVE); COLOR, URINE STRAW (YELLOW); GLUCOSE, URINE (UA) AUTO NEGATIVE (NEGATIVE); KETONE, URINE AUTO NEGATIVE (NEGATIVE); LEUKOCYTE ESTERASE, URINE AUTO TRACE (NEGATIVE); NITRITE, URINE AUTO NEGATIVE (NEGATIVE); PROTEIN, URINE AUTO NEGATIVE (NEGATIVE); RBC, URINE AUTO 0 /HPF (0-3); SPECIFIC GRAVITY URINE AUTO 1.002 (1.002-1.035); SQUAMOUS EPITHELIAL CELL UR AU 1 /HPF (0-6); UROBILINOGEN, URINE AUTO 0.2 mg/dL (0.0-2.0); WBC, URINE AUTO 3 /HPF (0-3)
== END ==
LOC: M LAB REF 21:51
PROVIDERS: ATTEND Physician Assistant Medical
DX: N39.0 Urinary tract infection, site not specified (principal)

== ENCOUNTER → 2022-10-24 | Outpatient (REF) | payer OTHER ==
[~2022-10-24] MED LIST changes: +ESTA0.25; +PANT40TA29; +PYRI1TAB5 PO
== END ==
LOC: M SFHCPLAZ 10:16
PROVIDERS: ATTEND Student in an Organized Health Care Education/Training Program
DX: N30.00 Acute cystitis without hematuria (principal)

== ENCOUNTER → 2022-10-27 | Outpatient (CLI) | payer OTHER ==
[2022-10-27 11:19] LABS: ALKALINE PHOSPHATASE 45 U/L (46-116); ALT/SGPT 15 U/L (7.0-40); AST/SGOT < 8 U/L (<34); BILIRUBIN,TOTAL 0.3 MG/DL (0.3-1.2); BLOOD UREA NITROGEN 11 MG/DL (9-23); CALCIUM LEVEL 9.3 MG/DL (8.5-10.1); CARBON DIOXIDE LEVEL 28 MMOL/L (20-31); CHLORIDE LEVEL 106 MMOL/L (98-107); CREATININE FOR GFR 0.73 MG/DL (0.55-1.30); GLOMERULAR FILTRATION RATE > 60.0 (>60); GLUCOSE, FASTING 83 MG/DL (60-100); POTASSIUM SERUM 4.1 MMOL/L (3.5-5.1); SODIUM LEVEL 139 MMOL/L (136-145); TOTAL PROTEIN 6.8 G/DL (5.7-8.2)
== END ==
LOC: M PLALAB 07:34
PROVIDERS: ATTEND Nurse Practitioner Adult Health
DX: R35.0 Frequency of micturition (principal)

== ENCOUNTER → 2022-10-27 | Outpatient (CLI) | payer OTHER ==
[2022-10-27 10:48] LABS: BASO # 0.1 10^3/uL (0.0-0.2); BASO % 0.5 % (0.0-1.0); EOS # 0.2 10^3/uL (0.0-0.5); EOS % 1.6 % (0.0-3.0); HEMATOCRIT 41.1 % (36.0-47.0); HEMOGLOBIN 13.4 g/dl (12.0-15.5); LYMPH # 1.6 10^3/uL (1.5-5.0); MEAN CORPUSCULAR HEMOGLOBIN 30.7 pg (27.0-33.0); MEAN CORPUSCULAR HGB CONC 32.6 g/dl (32.0-36.5); MEAN CORPUSCULAR VOLUME 94.1 fl (80.0-96.0); MONO # 0.4 10^3/uL (0.0-0.8); MONO % 4.4 % (2.0-8.0); NEUTROPHILS # 7.5 10^3/uL (1.5-8.5); NEUTROPHILS % 77.3 % (36.0-66.0); PLATELET COUNT, AUTOMATED 233 10^3/uL (150-450); RED BLOOD COUNT 4.37 10^6/uL (4.00-5.40); WHITE BLOOD COUNT 9.7 10^3/uL (4.0-10.0)
== END ==
LOC: M PLALAB 07:38
PROVIDERS: ATTEND Student in an Organized Health Care Education/Training Program
DX: N30.00 Acute cystitis without hematuria (principal)

== ENCOUNTER 2022-10-28 08:34 | Emergency (ER) | payer OTHER ==
[~2022-10-28] VITALS: Ht 162.6 cm; Wt 61.9 kg
[2022-10-28 08:34] VITALS: TEMP 97.3
[~2022-10-28 08:34] MED LIST changes: -ESTA0.25; -PANT40TA29; -PYRI1TAB5 PO
[2022-10-28] MEDS ORDERED: PANT40TA29 (08:52)
[2022-10-28] MEDS ORDERED: ESTA0.25 (08:52)
[2022-10-28] MEDS ORDERED: PYRI1TAB5 PO (12:31)
[2022-10-28 12:41] VITALS: BP 140/65; O2SAT 99
== END 2022-10-28 12:43 | disposition home or self-care (01) ==
LOC: M ED 08:34
DX: N83.202 Unspecified ovarian cyst, left side (principal); R30.0 Dysuria; Z87.42 Personal history of other diseases of the female genital tract; Z88.1 Allergy status to other antibiotic agents; Z88.5 Allergy status to narcotic agent; Z88.8 Allergy status to other drugs, medicaments and biological substances; Z79.899 Other long term (current) drug therapy

== ENCOUNTER → 2023-01-03 | Outpatient (REF) | payer OTHER ==
[~2023-01-03] MED LIST changes: +AZIT-12 PO; +CEPH500C PO; +ESTA0.25; +PANT40TA29; +PYRI1TAB5 PO; +VENTAER INH
[2023-01-03 18:06] LABS: APPEARANCE, URINE CLEAR (CLEAR); BACTERIA, URINE AUTO NEGATIVE (NEGATIVE); BILIRUBIN, URINE AUTO NEGATIVE (NEGATIVE); BLOOD, URINE BLOOD 3+ (NEGATIVE); COLOR, URINE YELLOW (YELLOW); GLUCOSE, URINE (UA) AUTO NEGATIVE (NEGATIVE); KETONE, URINE AUTO NEGATIVE (NEGATIVE); LEUKOCYTE ESTERASE, URINE AUTO NEGATIVE (NEGATIVE); MUCUS, URINE SMALL (NEGATIVE); NITRITE, URINE AUTO NEGATIVE (NEGATIVE); PROTEIN, URINE AUTO NEGATIVE (NEGATIVE); RBC, URINE AUTO 3 /HPF (0-3); SPECIFIC GRAVITY URINE AUTO 1.012 (1.002-1.035); SQUAMOUS EPITHELIAL CELL UR AU 1 /HPF (0-6); UROBILINOGEN, URINE AUTO 0.2 mg/dL (0.0-2.0); WBC, URINE AUTO 0 /HPF (0-3)
== END ==
LOC: M SMT 17:06
PROVIDERS: ATTEND Nurse Practitioner Family
DX: N39.0 Urinary tract infection, site not specified (principal)

== ENCOUNTER → 2023-01-24 | Outpatient (CLI) | payer OTHER | LOC: M RAD 16:30 | PROVIDERS: ATTEND Specialist | DX: N83.292 Other ovarian cyst, left side (principal) ==

== ENCOUNTER → 2023-05-11 | Outpatient (REF) | payer OTHER | LOC: M SFHCPLAZ 17:06 | PROVIDERS: ATTEND Nurse Practitioner Adult Health | DX: J34.89 Other specified disorders of nose and nasal sinuses (principal) ==

== ENCOUNTER → 2023-06-27 | Outpatient (REF) | payer OTHER | LOC: M SFHCWAGY 08:21 | PROVIDERS: ATTEND Specialist | DX: Z12.4 Encounter for screening for malignant neoplasm of cervix (principal) ==

== ENCOUNTER → 2023-11-02 | Outpatient (CLI) | payer OTHER ==
[2023-11-02 10:53] LABS: HEMATOCRIT 37.2 % (36.0-47.0); HEMOGLOBIN 12.4 g/dl (12.0-15.5); MEAN CORPUSCULAR HEMOGLOBIN 30.6 pg (27.0-33.0); MEAN CORPUSCULAR HGB CONC 33.3 g/dl (32.0-36.5); MEAN CORPUSCULAR VOLUME 91.9 fl (80.0-96.0); PLATELET COUNT, AUTOMATED 249 10^3/uL (150-450); RED BLOOD COUNT 4.05 10^6/uL (4.00-5.40); WHITE BLOOD COUNT 9.4 10^3/uL (4.0-10.0)
[2023-11-02 11:45] LABS: HIV 1&2 SCREEN NEGATIVE (NEGATIVE)
[2023-11-02 11:51] LABS: HEPATITIS C VIRUS ABY INDEX < 0.02 INDEX (<0.8)
== END ==
LOC: M PLALAB 09:32
PROVIDERS: ATTEND Specialist
DX: O09.521 Supervision of elderly multigravida, first trimester (principal); Z3A.00 Weeks of gestation of pregnancy not specified

== ENCOUNTER → 2023-11-21 | Outpatient (CLI) | payer OTHER ==
[~2023-11-21] MED LIST changes: +HOLTER MONITOR XX
== END ==
LOC: M RAD 15:52
PROVIDERS: ATTEND Nurse Practitioner Adult Health
DX: R59.9 Enlarged lymph nodes, unspecified (principal)

== ENCOUNTER → 2023-11-30 | Outpatient (REF) | payer OTHER | LOC: M SFHCWAGY 10:08 | PROVIDERS: ATTEND Specialist | DX: O09.521 Supervision of elderly multigravida, first trimester (principal); Z3A.00 Weeks of gestation of pregnancy not specified ==

== ENCOUNTER 2023-12-05 16:47 | Emergency (ER) | payer OTHER ==
[~2023-12-05] VITALS: Ht 162.6 cm; Wt 81.5 kg
[~2023-12-05 16:47] MED LIST changes: -HOLTER MONITOR XX
[2023-12-05 16:48] VITALS: BP 119/56; TEMP 97.2; O2SAT 100
[2023-12-05] MEDS ORDERED: HOLTER MONITOR XX (19:29)
[2023-12-05 19:50] LABS: APPEARANCE, URINE CLEAR (CLEAR); BACTERIA, URINE AUTO NEGATIVE (NEGATIVE); BILIRUBIN, URINE AUTO NEGATIVE (NEGATIVE); BLOOD, URINE BLOOD NEGATIVE (NEGATIVE); COLOR, URINE YELLOW (YELLOW); GLUCOSE, URINE (UA) AUTO NEGATIVE (NEGATIVE); KETONE, URINE AUTO 1+ mg/dL (NEGATIVE); LEUKOCYTE ESTERASE, URINE AUTO NEGATIVE (NEGATIVE); MUCUS, URINE SMALL (NEGATIVE); NITRITE, URINE AUTO NEGATIVE (NEGATIVE); PROTEIN, URINE AUTO NEGATIVE (NEGATIVE); RBC, URINE AUTO 0 /HPF (0-3); SPECIFIC GRAVITY URINE AUTO 1.015 (1.002-1.035); SQUAMOUS EPITHELIAL CELL UR AU 0 /HPF (0-6); UROBILINOGEN, URINE AUTO 0.2 mg/dL (0.0-2.0); WBC, URINE AUTO 0 /HPF (0-3)
[2023-12-05 20:52] LABS: Trichomonas vaginalis (AMP) NOT DETECTED (NEGATIVE)
[2023-12-05 21:16] LABS: GC DNA AMPLIFICATION NEGATIVE (NEGATIVE)
== END 2023-12-05 19:33 | disposition home or self-care (01) ==
LOC: M ED 16:47
DX: O20.0 Threatened abortion (principal); O26.852 Spotting complicating pregnancy, second trimester; Z3A.15 15 weeks gestation of pregnancy; Z79.52 Long term (current) use of systemic steroids; Z79.899 Other long term (current) drug therapy; Z79.2 Long term (current) use of antibiotics; Z88.1 Allergy status to other antibiotic agents; Z88.5 Allergy status to narcotic agent

== ENCOUNTER → 2024-01-01 | Outpatient (CLI) | payer OTHER ==
[~2024-01-01] MED LIST changes: +HOLTER MONITOR XX
== END ==
LOC: M WHC 14:19
PROVIDERS: ATTEND Specialist
DX: Z34.82 Encounter for supervision of other normal pregnancy, second trimester (principal)

== ENCOUNTER → 2024-01-29 | Outpatient (CLI) | payer OTHER ==
[~2024-01-29] MED LIST changes: -CYCL5TAB PO; +CYCL5TAB4 PO
== END ==
LOC: M RAD 16:05
PROVIDERS: ATTEND Specialist
DX: Z34.82 Encounter for supervision of other normal pregnancy, second trimester (principal)

== ENCOUNTER → 2024-02-26 | Outpatient (CLI) | payer OTHER ==
[2024-02-26 12:20] LABS: HEMATOCRIT 35.4 % (36.0-47.0); HEMOGLOBIN 11.4 g/dl (12.0-15.5); MEAN CORPUSCULAR HEMOGLOBIN 30.1 pg (27.0-33.0); MEAN CORPUSCULAR HGB CONC 32.2 g/dl (32.0-36.5); MEAN CORPUSCULAR VOLUME 93.4 fl (80.0-96.0); PLATELET COUNT, AUTOMATED 250 10^3/uL (150-450); RED BLOOD COUNT 3.79 10^6/uL (4.00-5.40); WHITE BLOOD COUNT 10.9 10^3/uL (4.0-10.0)
[2024-02-26 12:22] LABS: GLUCOSE CHALLENGE TEST 1 HOUR 133 MG/DL (LESS THAN 140)
[2024-02-26 12:52] LABS: HIV 1&2 SCREEN NEGATIVE (NEGATIVE)
[2024-02-26 13:00] LABS: HEPATITIS C VIRUS ABY INDEX < 0.02 INDEX (<0.8)
[2024-02-26 13:58] LABS: GC DNA AMPLIFICATION NEGATIVE (NEGATIVE)
== END ==
LOC: M PLALAB 07:18
PROVIDERS: ATTEND Specialist
DX: Z34.82 Encounter for supervision of other normal pregnancy, second trimester (principal); Z3A.00 Weeks of gestation of pregnancy not specified

== ENCOUNTER → 2024-03-26 | Outpatient (CLI) | payer OTHER | LOC: M LAB 07:46 | PROVIDERS: ATTEND Specialist | DX: Z34.82 Encounter for supervision of other normal pregnancy, second trimester (principal); Z3A.00 Weeks of gestation of pregnancy not specified ==

== ENCOUNTER → 2024-04-15 | Outpatient (CLI) | payer OTHER | LOC: M RAD 12:02 | PROVIDERS: ATTEND Specialist | DX: Z34.83 Encounter for supervision of other normal pregnancy, third trimester (principal); Z3A.34 34 weeks gestation of pregnancy ==

== ENCOUNTER → 2024-04-16 | Outpatient (CLI) | payer OTHER ==
[2024-04-16 14:55] LABS: HEMOGLOBIN 11.2 g/dl (12.0-15.5); MEAN CORPUSCULAR HEMOGLOBIN 28.9 pg (27.0-33.0); MEAN CORPUSCULAR VOLUME 90.2 fl (80.0-96.0); PLATELET COUNT, AUTOMATED 284 10^3/uL (150-450); RED BLOOD COUNT 3.88 10^6/uL (4.00-5.40); WHITE BLOOD COUNT 12.5 10^3/uL (4.0-10.0)
[2024-04-16 15:00] LABS: CREATININE,RANDOM URINE 21.4 MG/DL
[2024-04-16 15:01] LABS: LDH LACTATE DEHYDROGENASE 204 U/L (120-246)
[2024-04-16 15:02] LABS: ALT/SGPT 80 U/L (7.0-40); AST/SGOT 44 U/L (<34); BILIRUBIN,TOTAL 0.2 MG/DL (0.3-1.2); CREATININE FOR GFR 0.51 MG/DL (0.55-1.30); GLOMERULAR FILTRATION RATE > 60.0 (>60)
[2024-04-16 15:05] LABS: TOTAL PROTEIN,RANDOM URINE < 6.0 MG/DL (0.0-14.0); URIC ACID 4.5 MG/DL (3.1-7.8)
== END ==
LOC: M PLALAB 10:13
PROVIDERS: ATTEND Specialist
DX: Z34.83 Encounter for supervision of other normal pregnancy, third trimester (principal); Z3A.00 Weeks of gestation of pregnancy not specified

== ENCOUNTER → 2024-04-18 | Outpatient (CLI) | payer OTHER ==
[~2024-04-18] MED LIST changes: +PRENTAB9 PO
[2024-04-18 10:50] LABS: HEMATOCRIT 35.4 % (36.0-47.0); HEMOGLOBIN 11.5 g/dl (12.0-15.5); MEAN CORPUSCULAR HEMOGLOBIN 28.6 pg (27.0-33.0); MEAN CORPUSCULAR HGB CONC 32.5 g/dl (32.0-36.5); MEAN CORPUSCULAR VOLUME 88.1 fl (80.0-96.0); PLATELET COUNT, AUTOMATED 279 10^3/uL (150-450); RED BLOOD COUNT 4.02 10^6/uL (4.00-5.40); WHITE BLOOD COUNT 11.9 10^3/uL (4.0-10.0)
[2024-04-18 11:32] LABS: ALBUMIN 2.4 G/DL (3.2-5.2); ALKALINE PHOSPHATASE 94 U/L (35-104); ALT/SGPT 82 U/L (7.0-40); AST/SGOT 60 U/L (<34); BILIRUBIN,TOTAL 0.3 MG/DL (0.3-1.2); BLOOD UREA NITROGEN 10 MG/DL (9-23); CALCIUM LEVEL 8.3 MG/DL (8.5-10.1); CARBON DIOXIDE LEVEL 22 MMOL/L (20-31); CHLORIDE LEVEL 106 MMOL/L (98-107); CREATININE FOR GFR 0.51 MG/DL (0.55-1.30); GLOMERULAR FILTRATION RATE > 60.0 (>60); GLUCOSE, FASTING 83 MG/DL (60-100); POTASSIUM SERUM 4.9 MMOL/L (3.5-5.1); SODIUM LEVEL 141 MMOL/L (136-145); TOTAL PROTEIN 6.1 G/DL (5.7-8.2)
== END ==
LOC: M PLALAB 08:02
PROVIDERS: ATTEND Specialist
DX: Z34.83 Encounter for supervision of other normal pregnancy, third trimester (principal); Z3A.00 Weeks of gestation of pregnancy not specified

== ENCOUNTER 2024-04-19 14:21 | Outpatient (CLI) | payer OTHER ==
[~2024-04-19] VITALS: Ht 162.6 cm; Wt 105.8 kg
[~2024-04-19 14:21] MED LIST changes: -PRENTAB9 PO
[2024-04-19 14:42] VITALS: BP 126/68
[2024-04-19] MEDS ORDERED: PRENTAB9 PO (14:47)
[2024-04-19 14:50] VITALS: BP 125/58
[2024-04-19] MEDS ORDERED: HOME MED LIST COMPLETE! XX SCH (15:00)
[2024-04-19] MEDS: BETAMETHASONE SOLUSPAN 6MG/ML 5ML VIAL IM ONE (15:08)
== END 2024-04-19 15:27 | disposition home or self-care (01) ==
LOC: M LDO 14:21
PROVIDERS: ATTEND Specialist
DX: O26.893 Other specified pregnancy related conditions, third trimester (principal); O09.523 Supervision of elderly multigravida, third trimester; O34.219 Maternal care for unspecified type scar from previous cesarean delivery; R03.0 Elevated blood-pressure reading, without diagnosis of hypertension; R60.9 Edema, unspecified; Z86.16 Personal history of COVID-19; Z3A.34 34 weeks gestation of pregnancy
CPT/HCPCS: 59025; 96372; G0463; J0702

== ENCOUNTER 2024-04-20 14:25 | Outpatient (CLI) | payer OTHER ==
[~2024-04-20] VITALS: Ht 162.6 cm; Wt 105.0 kg
[~2024-04-20 14:25] MED LIST changes: +PRENTAB9 PO
[2024-04-20 14:38] VITALS: BP 127/65
[2024-04-20] MEDS ORDERED: HOME MED LIST COMPLETE! XX SCH (14:45)
[2024-04-20] MEDS: BETAMETHASONE SOLUSPAN 6MG/ML 5ML VIAL IM ONE (15:23)
== END 2024-04-20 15:45 | disposition home or self-care (01) ==
LOC: M LDO 14:25
PROVIDERS: ATTEND Specialist
DX: O26.893 Other specified pregnancy related conditions, third trimester (principal); R03.0 Elevated blood-pressure reading, without diagnosis of hypertension; R60.9 Edema, unspecified; Z3A.35 35 weeks gestation of pregnancy
CPT/HCPCS: 59025; 96372; G0463; J0702

== ENCOUNTER → 2024-04-23 | Outpatient (CLI) | payer OTHER ==
[2024-04-23 10:45] LABS: HEMATOCRIT 34.5 % (36.0-47.0); HEMOGLOBIN 10.9 g/dl (12.0-15.5); MEAN CORPUSCULAR HEMOGLOBIN 27.8 pg (27.0-33.0); MEAN CORPUSCULAR HGB CONC 31.6 g/dl (32.0-36.5); PLATELET COUNT, AUTOMATED 290 10^3/uL (150-450); RED BLOOD COUNT 3.92 10^6/uL (4.00-5.40); WHITE BLOOD COUNT 13.5 10^3/uL (4.0-10.0)
[2024-04-23 11:07] LABS: ALBUMIN 2.5 G/DL (3.2-5.2); ALKALINE PHOSPHATASE 87 U/L (35-104); ALT/SGPT 29 U/L (7.0-40); AST/SGOT 13 U/L (<34); BILIRUBIN,TOTAL 0.3 MG/DL (0.3-1.2); BLOOD UREA NITROGEN 10 MG/DL (9-23); CALCIUM LEVEL 8.3 MG/DL (8.5-10.1); CARBON DIOXIDE LEVEL 23 MMOL/L (20-31); CHLORIDE LEVEL 107 MMOL/L (98-107); CREATININE FOR GFR 0.49 MG/DL (0.55-1.30); GLOMERULAR FILTRATION RATE > 60.0 (>60); GLUCOSE, FASTING 76 MG/DL (60-100); POTASSIUM SERUM 4.4 MMOL/L (3.5-5.1); SODIUM LEVEL 140 MMOL/L (136-145); TOTAL PROTEIN 5.9 G/DL (5.7-8.2)
== END ==
LOC: M PLALAB 08:29
PROVIDERS: ATTEND Specialist
DX: Z34.83 Encounter for supervision of other normal pregnancy, third trimester (principal)

== ENCOUNTER 2024-04-29 15:02 | Outpatient (CLI) | payer OTHER ==
[~2024-04-29] VITALS: Ht 162.6 cm; Wt 107.3 kg
[2024-04-29 15:21] VITALS: BP 125/81
[2024-04-29] MEDS ORDERED: HOME MED LIST COMPLETE! XX SCH (15:25)
[2024-05-03] MEDS ORDERED: FAMO1TAB11 PO (07:42)
== END 2024-04-29 16:41 | disposition home or self-care (01) ==
LOC: M LDO 15:02
PROVIDERS: ATTEND Advanced Practice Midwife
DX: O47.03 False labor before 37 completed weeks of gestation, third trimester (principal); O34.219 Maternal care for unspecified type scar from previous cesarean delivery; O09.523 Supervision of elderly multigravida, third trimester; Z3A.36 36 weeks gestation of pregnancy; Z88.1 Allergy status to other antibiotic agents; Z88.5 Allergy status to narcotic agent; Z91.09 Other allergy status, other than to drugs and biological substances
CPT/HCPCS: 59025; 76815; 87081; G0463

== ENCOUNTER 2024-05-17 05:32 | Inpatient (IN) | payer OTHER ==
[~2024-05-17] VITALS: Ht 162.6 cm; Wt 110.0 kg
[2024-05-17] VITALS (11 sets, daily range): BP systolic 108–141; BP diastolic 54–80; TEMP 97.6; O2SAT 96–100
[~2024-05-17 05:32] MED LIST changes: +FAMO1TAB11 PO
[2024-05-17] MEDS: LACTATED RINGER'S 1000 ML IV STA (05:38)
[2024-05-17 06:29] LABS: HEMATOCRIT 34.9 % (36.0-47.0); HEMOGLOBIN 11.4 g/dl (12.0-15.5); MEAN CORPUSCULAR HEMOGLOBIN 27.5 pg (27.0-33.0); MEAN CORPUSCULAR HGB CONC 32.7 g/dl (32.0-36.5); MEAN CORPUSCULAR VOLUME 84.1 fl (80.0-96.0); PLATELET COUNT, AUTOMATED 234 10^3/uL (150-450); RED BLOOD COUNT 4.15 10^6/uL (4.00-5.40); WHITE BLOOD COUNT 11.3 10^3/uL (4.0-10.0)
[2024-05-17] MEDS: BICITRA 30ML SOLN UDC PO ONE (07:14)
[2024-05-17] MEDS: ceFAZolin SODIUM 2 GM in DEXTROSE 5% (D5W) ADV/MINI-BAG 50 ML IV ONE (07:14)
[2024-05-17] MEDS ORDERED: MORPHINE PRES-FREE INJ 10 MG/10 ML VIAL As Ordered ONE (07:19)
[2024-05-17] MEDS ORDERED: OXYTOCIN 30UNITS IN 0.9% NaCl 500ML IV BAG As Ordered ONE (07:20)
[2024-05-17] MEDS ORDERED: ePHEDrine SULFATE 25 MG/5 ML(5MG/ML) SYRINGE As Ordered ONE (07:20)
[2024-05-17] MEDS ORDERED: PHENYLephrine 500MCG 5ML (100MCG/ML) SYRINGE As Ordered ONE (07:20)
[2024-05-17 07:34] LABS: HIV 1&2 SCREEN NEGATIVE (NEGATIVE)
[2024-05-17 07:42] LABS: HEPATITIS C VIRUS ABY INDEX 0.11 INDEX (<0.8)
[2024-05-17] MEDS ORDERED: ONDANSETRON 4MG 2ML VIAL As Ordered ONE (08:00)
[2024-05-17] MEDS ORDERED: KETOROLAC 60MG 2ML VIAL As Ordered ONE (08:00)
[2024-05-17] MEDS ORDERED: NALOXONE INJ 0.4MG/1ML VIAL IV PRN ×2 (08:35)
[2024-05-17] MEDS ORDERED: **NOTE PATIENT COMMENT** MISC XX SCH (08:35)
[2024-05-17] MEDS ORDERED: diphenhydrAMINE 50MG/ML VIAL IV PRN (08:35)
[2024-05-17] MEDS ORDERED: fentaNYL 100 MCG/2 ML INJECTION IV PRN (08:35)
[2024-05-17] MEDS ORDERED: ONDANSETRON 4MG 2ML VIAL IV PRN ×2 (08:35→08:40)
[2024-05-17] MEDS ORDERED: SIMETHICONE 80MG CHEW TAB PO PRN (08:40)
[2024-05-17] MEDS ORDERED: LR 1,000 ML IV SCH (08:40)
[2024-05-17] MEDS ORDERED: RHOGAM 300MCG (1500IU) INJ IM SCH (08:40)
[2024-05-17] MEDS ORDERED: DOCUSATE SODIUM 100MG CAPSULE PO PRN (08:40)
[2024-05-17] MEDS: PERCOCET 5MG/325MG TAB PO PRN (10:48)
[2024-05-17] MEDS: PRENATAL VITAMINS CHEWABLE TABLET PO SCH (10:48)
[2024-05-17] MEDS: METOCLOPRAMIDE INJ 10MG/2ML VIAL IV PRN (14:04)
[2024-05-17] MEDS: KETOROLAC 30 MG/ML 1ML VIAL IV SCH (14:05)
[2024-05-18] MEDS: SLF 3 ML SYR IV SCH (00:35)
[2024-05-18 02:06] VITALS: BP 114/56; O2SAT 99
[2024-05-18 06:07] VITALS: BP 98/54; O2SAT 99
[2024-05-18 07:13] LABS: HEMOGLOBIN 9.7 g/dl (12.0-15.5); MEAN CORPUSCULAR HGB CONC 32.3 g/dl (32.0-36.5); MEAN CORPUSCULAR VOLUME 86.7 fl (80.0-96.0); PLATELET COUNT, AUTOMATED 205 10^3/uL (150-450); RED BLOOD COUNT 3.46 10^6/uL (4.00-5.40); WHITE BLOOD COUNT 12.5 10^3/uL (4.0-10.0)
[2024-05-18] MEDS: IBUPROFEN 800 MG TAB PO SCH (09:23)
[2024-05-18 10:00] VITALS: BP 129/58; O2SAT 96
[2024-05-18] MEDS: PERCOCET 5MG/325MG TAB PO PRN (13:37)
[2024-05-18 14:00] VITALS: BP 118/57; O2SAT 97
[2024-05-18 18:00] VITALS: BP 121/59; O2SAT 96
[2024-05-18 22:00] VITALS: BP 128/58; O2SAT 97
[2024-05-19] MEDS ORDERED: COLA100C5 PO (01:18)
[2024-05-19] MEDS ORDERED: OXYC1TAB23 PO (01:18)
[2024-05-19] MEDS ORDERED: IBUP80TA PO (01:18)
[2024-05-19 02:00] VITALS: BP 113/70; O2SAT 97
[2024-05-19 06:00] VITALS: BP 138/60; O2SAT 97
[2024-05-19] MEDS: MEASLES,MUMPS,RUBELLA VACCINE INJ (MMR-II) SC.IMMUN ONE (09:00)
== END 2024-05-19 12:20 | disposition home or self-care (01) | DRG 540 ==
LOC: M LDI 05:32 → M OBS 09:56
PROVIDERS: ADMIT Specialist; ATTEND Specialist
PROC: 10D00Z1 Extraction of Products of Conception, Low, Open Approach (ICD-10-PCS; principal; 2024-05-17 07:30)
DX: O34.211 Maternal care for low transverse scar from previous cesarean delivery (principal); Z37.0 Single live birth; Z3A.39 39 weeks gestation of pregnancy; O69.2XX0 Labor and delivery complicated by other cord entanglement, with compression, not applicable or unspecified; O09.523 Supervision of elderly multigravida, third trimester; Z88.5 Allergy status to narcotic agent; Z88.8 Allergy status to other drugs, medicaments and biological substances

== ENCOUNTER → 2024-06-19 | Outpatient (CLI) | payer OTHER ==
[~2024-06-19] MED LIST changes: +COLA100C5 PO; +IBUP80TA PO; +OXYC1TAB23 PO
[2024-06-19 15:56] LABS: ALBUMIN 3.7 G/DL (3.2-5.2); ALKALINE PHOSPHATASE 87 U/L (35-104); ALT/SGPT 29 U/L (7.0-40); AST/SGOT 18 U/L (<34); BILIRUBIN,TOTAL 0.3 MG/DL (0.3-1.2); BLOOD UREA NITROGEN 11 MG/DL (9-23); CALCIUM LEVEL 9.1 MG/DL (8.5-10.1); CARBON DIOXIDE LEVEL 27 MMOL/L (20-31); CHLORIDE LEVEL 108 MMOL/L (98-107); CREATININE FOR GFR 0.82 MG/DL (0.55-1.30); GLOMERULAR FILTRATION RATE > 60.0 (>60); GLUCOSE, FASTING 87 MG/DL (60-100); POTASSIUM SERUM 4.5 MMOL/L (3.5-5.1); SODIUM LEVEL 142 MMOL/L (136-145); TOTAL PROTEIN 6.8 G/DL (5.7-8.2)
== END ==
LOC: M PLALAB 12:50
PROVIDERS: ATTEND Nurse Practitioner Adult Health
DX: R22.43 Localized swelling, mass and lump, lower limb, bilateral (principal)

== ENCOUNTER → 2024-11-13 | Outpatient (REF) | payer OTHER ==
[2024-11-15 14:57] LABS: HPV APTIMA Not Detected (Not Detected)
== END ==
LOC: M SFHCWAGY 13:31
PROVIDERS: ATTEND Specialist
DX: Z12.4 Encounter for screening for malignant neoplasm of cervix (principal); Z77.9 Other contact with and (suspected) exposures hazardous to health

== ENCOUNTER → 2024-11-26 | Outpatient (CLI) | payer OTHER | LOC: M PLAIMG 15:25 | PROVIDERS: ATTEND Nurse Practitioner Adult Health | DX: R09.89 Other specified symptoms and signs involving the circulatory and respiratory systems (principal) ==